=== PATIENT | female | born 1950 | race Caucasian/White ===

== ENCOUNTER 2024-01-27 13:39 | Outpatient (AMB) | payer MEDICARE, SELFPAY ==
--- NOTE | 2024-01-27 13:46 | MHC.PC.OV ---
Vital Signs 01/27/24 13:47 Height 5 ft 8 in Weight 167 lb BMI 25.4 BP 120/76 Blood Pressure Location Rt brachial Position Sitting Pulse 86 Pulse Source Pulse Oximeter Pulse Oximetry (%) 95 Oxygen Delivery Method Room Air Intake Visit Reasons: F/U Med Review Intake Note: Pt is here today for PE. Pt has not been seen since 2020. Allergies codeine Allergy (Unknown, Verified 01/27/24 13:52) Headache Medication List - Last Reconciled 01/27/24 by Mallory Wagner MD coenzyme Q10 (H2Q CoQ10) PO multivitamin 1 tab PO DAILY [pre probiotic PO] Tobacco use date assessed: 01/27/24 Fall risk assessment: No Falls in past year Last assessed Fall Risk: 01/27/24 Dental Screening Dental Screen Date: 01/27/24 Did you have a dental visit in the last 12 months?: Yes Did you have a dental problem in the last 6 months where you did not have access to dental care?: No Was dental information given to patient?: Patient has dentist HPI F/U Med Review HPI Details Pt presents with her neighbor for follow-up of ER visit to [facility] for impaired memory and delusions. Patient's neighbor found out 2 weeks ago that she has not been cleaning and taking care of her apartment and paying bills for a few years. Patient complains of worsening short-term memory worse since she lost her cat in the summer. Patient reports drinking at least a glass of vodka daily and smoking up to 1 pack a day. Patient denies depression suicide ideation change in the sleeping or eating patterns. [facility] Medical History Colonoscopy refused Smoker HTN (hypertension) Hyperlipidemia Depression Surgical History No pertinent past surgical history Family History Father No problems noted. Mother No problems noted. Social History [facility] Patient Tobacco Use Status: Current everyday Tobacco user Cigarettes Per Day: 4 e-Cigarette/Vaping Use: Never Used service: No Current occupational status: retired Cognitive needs: No Hearing needs: No Vision needs: Yes Questionnaire PHQ-9 Over the last 2 weeks, how often have you been bothered by any of the following problems? 1. Little interest or pleasure in doing things: not at all 2. Feeling down, depressed, or hopeless: not at all 3. Trouble falling or staying asleep, or sleeping too much: not at all 4. Feeling tired or having little energy: not at all 5. Poor appetite or overeating: not at all 6. Feeling bad about yourself - or that you are a failure or have let yourself or your family down: not at all 7. Trouble concentrating on things, such as reading the newspaper or watching television: not at all 8. Moving or speaking so slowly that other people could have noticed. Or the opposite - being so fidgety or restless that you have been moving around a lot more than usual: not at all 9. Thoughts that you would be better off or of hurting yourself in some way: not at all Total score: 0 Depression Screening Interpretation: Negative Depression Screening Done: Yes 46438 - PHQ-9 Billing: Yes Source: Developed by Drs. Mihir Yeung, Opal Dawn, Cesar Rebolledo and colleagues, with an educational jose armando from [employer]. Thrive Questionnaire Date Thrive assessed: 01/27/24 I am a: Patient What is your living situation today?: I have a place to live, but I am worried about losing it in the future Within the past 12 months, did the food you bought not last and you didn't have the money to get more?: Never true Within the past 12 months, did you worry whether your food would run out before you got money to buy more?: Never true Do you have trouble paying for medicines?: No Do you have trouble getting transportation to medical appointments?: Yes Do you have trouble paying your heating and electricity bill?: No Do you have trouble taking care of your child, family member or friend?: No Do you have trouble with day-to-day activities such as bathing, preparing meals, shopping, managing finances, etc.?: Yes Are you currently unemployed and looking for a job?: No Are you interested in more education?: No Please select the resources that you would like help with: Housing/Nursing Home, Transportation and Care for elder or disabled Currently or been in a relationship where the following occur: No concerns reported THRIVE Score: 2 AUDIT C Alcohol Use Questionnaire (AUDIT-C) 1. How often do you have a drink containing alcohol?: 4 or more times a week 2. How many drinks containing alcohol do you have on a typical day when you are drinking?: 1 or 2 3. How often do you have six or more drinks on one occasion?: Never Total Score: 4 BELEM-7 AMB Questionnaire BELEM-7 Date BELEM - 7 assessed: 01/27/24 Feeling nervous, anxious, or on edge: 0 = Not at all Not being able to stop or control worryin = Not at all Worrying too much about different things: 0 = Not at all Trouble relaxin = Not at all Being so restless that it is hard to sit still: 0 = Not at all Becoming easily annoyed or irritable: 0 = Not at all Feeling afraid as if something awful might happen: 0 = Not at all Total BELEM-7 score (0-4 normal; 5-9 mild; 10-14 moderate; 15-21 severe): 0 Source: Developed by Drs. Mihir Yeung, Opal Dawn, Cesar Rebolledo and colleagues, with an educational jose armando from [employer]. BELEM-7 Assessment Billing BELEM-7 Assessment Tool: BELEM-7 Assessment 35881 Review of Systems Const All systems reviewed & are unremarkable except as noted in HPI and below Eyes Reports no additional complaints ENT Reports no additional complaints Card Reports no additional complaints Resp Reports no additional complaints GI Reports no additional complaints Reports no additional complaints Physical exam (Primary Care) Vital Signs: Last Vital Signs Pulse 86 01/27/24 13:47 BP 120/76 01/27/24 13:47 Pulse Ox 95 01/27/24 13:47 Oxygen Delivery Method Room Air 01/27/24 13:47 BMI result Body Mass Index 25.4 Tobacco/Smoking Status: Tobacco use Status Tobacco use date assessed 01/27/24 01/27/24 13:56 Patient Tobacco Use Status Current everyday Tobacco 01/27/24 13:56 e-Cigarette/Vaping Use Never Used 01/27/24 13:56 PHQ-9: PHQ-9 Score PHQ-9: Total score 0 01/27/24 13:56 Depression Screening Interpretation: Negative Thrive Assessment: Date of Thrive Assessment Date Thrive assessed 01/27/24 01/27/24 13:58 Currently or been in a relationship where the following occur: No concerns reported Const General: no acute distress Orientation/consciousness: patient oriented x3 HENMT Head: Yes normal to inspection Mouth: Normal oral and palatal mucosa present Neck Neck: Yes no lymphadenopathy and Yes supple Resp Effort & Inspection: normal respiratory effort Auscultation: clear to auscultation bilaterally Cardio Rhythm: regular rhythm Heart sounds: S1 normal heart sound present and S2 normal heart sound present GI Inspection: Yes normal to inspection Palpation (GI): Soft to palpation Percussion: Yes normal to percussion Auscultation: normal bowel sounds Neuro General: patient oriented x3 Cranial nerves: Yes CN's II-XII intact bilaterally Gait exam (Neuro): Normal gait present Motor exam (neuro): 5/5 motor strength present throughout Coding Level of Care Code Est Pt Level 3 (84674) Diagnoses Dementia F03.90 EtOH dependence F10.20 Additional Codes BELEM-7 Assessment Billing - BELEM-7 Assessment Tool: BELEM-7 Assessment 25122 ([id number]) PHQ-9 - 92342 - PHQ-9 Billing: Yes ([id number]) Assessment & Plan Assessment & Plan (1) Dementia: Code(s): F03.90 - Unspecified dementia, unspecified severity, without behavioral disturbance, psychotic disturbance, mood disturbance, and anxiety Category: Medical Plan: Obtain basic blood work including vitamin B12 level and folic acid referred to neurology. Patient is thinking about moving to assisted living facility (2) EtOH dependence: Code(s): F10.20 - Alcohol dependence, uncomplicated Category: Medical Plan: Cutting down on alcohol discussed with the patient, follow-up in 2 months Orders: Orders Complete Blood Count Auto Diff Today F03.90 - Unspecified dementia, unspecified severity, without behavioral disturbance, psychotic disturbance, mood disturbance, and anxiety Comprehensive Met. Panel Today F03.90 - Unspecified dementia, unspecified severity, without behavioral disturbance, psychotic disturbance, mood disturbance, and anxiety TSH reflex Free T4 Today F03.90 - Unspecified dementia, unspecified severity, without behavioral disturbance, psychotic disturbance, mood disturbance, and anxiety Vitamin B12 and Folate Today F03.90 - Unspecified dementia, unspecified severity, without behavioral disturbance, psychotic disturbance, mood disturbance, and anxiety Vitamin B1 Today F03.90 - Unspecified dementia, unspecified severity, without behavioral disturbance, psychotic disturbance, mood disturbance, and anxiety Referrals Neurology Referral F03.90 - Unspecified dementia, unspecified severity, without behavioral disturbance, psychotic disturbance, mood disturbance, and anxiety
[2024-01-27 13:47] VITALS: BP 120/76; PULSE 86; O2SAT 95; BMI 25.4
== END 2024-01-27 14:53 | disposition home or self-care (01) ==
PROVIDERS: PCP Internal Medicine; Visit Provider Internal Medicine
DX: F03.90 Unspecified dementia, unspecified severity, without behavioral disturbance, psychotic disturbance, mood disturbance, and anxiety (principal); F10.20 Alcohol dependence, uncomplicated

== ENCOUNTER → 2024-01-27 13:39 | Outpatient (BNVA) | payer MEDICARE, SELFPAY | PROVIDERS: PCP Internal Medicine; Visit Provider Internal Medicine | DX: F17.210 Nicotine dependence, cigarettes, uncomplicated (principal); F10.20 Alcohol dependence, uncomplicated | CPT/HCPCS: 96127; 99212 ==

== ENCOUNTER 2024-02-24 12:37 | Outpatient (REF) | payer MEDICARE, SELFPAY ==
[2024-02-24 16:05] LABS: MANUAL DIFF FLAG NO
[2024-02-24 16:09] LABS: Basophils Percent Auto 0.4 % (0-2); Eosinophils Absolute Auto 0.1 X10*3/uL (0.0-0.4); Eosinophils Percent Auto 1.8 % (0-4); Hematocrit 41.4 % (37.0-47.0); Hemoglobin 14.4 g/dl (12.0-16.0); Imm Gran Abs Auto 0.02 X10*3/uL (0.00-0.03); Imm Gran Pct Auto 0.3 % (0.0-0.4); Lymphocytes Absolute Auto 2.2 X10*3/uL (1.2-4.9); Lymphocytes Percent Auto 31.4 % (20-40); Mean Corpuscular HGB Conc 34.8 g/dl (31.0-35.0); Mean Corpuscular Hemoglobin 33.6 pg (27.0-33.0); Mean Corpuscular Volume 96.7 fL (80.0-98.0); Mean Platelet Volume 9.9 fL (9.4-12.3); Monocytes Absolute Auto 0.4 X10*3/uL (0.1-1.2); Monocytes Percent Auto 5.5 % (2-11); Neutrophils Absolute Auto 4.3 x10*3/uL (2.0-8.3); Neutrophils Percent Auto 60.6 % (45-73); Platelet Count 191 X10*3/uL (160-400); Red Blood Count 4.28 X10*6/uL (4.20-5.50); Red Cell Distribution Width 11.5 % (11.0-16.0)
[2024-02-24 17:09] LABS: Alanine Aminotransferase 25 U/L (0-31); Albumin Level 4.2 g/dL (3.5-5.0); Alkaline Phosphatase 80 U/L (39-117); Anion Gap 10 (12-20); Aspartate Amino Transferase 25 U/L (5-31); Bilirubin Total 0.8 mg/dL (0.0-1.0); Blood Urea Nitrogen 12 mg/dL (9-16); Calcium 9.3 mg/dL (8.4-10.2); Carbon Dioxide 26 mmol/L (22-29); Chloride 112 mmol/L (96-108); Estimated Glomerular Filt Rate > 60; Glucose Random 107 mg/dL (60-115); Potassium 4.7 mmol/L (3.3-5.1); Sodium 143 mmol/L (135-145); TSH reflex Free T4 1.75 uIU/mL (0.32-4.0); Total Protein 6.8 g/dL (6.5-8.0)
[2024-02-24 17:21] LABS: Folate 15.4 ng/mL (> or = 4.0); Vitamin B12 400 pg/mL (200-900)
[2024-03-01 15:58] LABS: Vitamin B1 <6 nmol/L (8-30)
== END 2024-02-24 12:38 | disposition home or self-care (01) ==
LOC: HO.HMGCLDS 12:37
PROVIDERS: PCP Internal Medicine; Visit Provider Internal Medicine
DX: F03.90 Unspecified dementia, unspecified severity, without behavioral disturbance, psychotic disturbance, mood disturbance, and anxiety (principal)
CPT/HCPCS: 36415; 80053; 82607; 82746; 84425; 84443; 85025

== ENCOUNTER 2024-03-08 12:43 | Outpatient (AMB) | payer MEDICARE, SELFPAY ==
--- NOTE | 2024-03-08 12:43 | MHC.PC.OV ---
Vital Signs 03/08/24 12:44 Height 5 ft 8 in Weight 162 lb BMI 24.6 BP 124/74 Blood Pressure Location Lt brachial Position Sitting Respiration 16 Pulse 94 Pulse Source Pulse Oximeter Temp 98.2 F Temp Source Oral Pulse Oximetry (%) 96 Oxygen Delivery Method Room Air Intake Visit Reasons: 6 weeks f/up Intake Note: Pt is here today for 6 weeks follow up visit. Allergies codeine Allergy (Unknown, Verified 03/08/24 12:52) Headache Medication List - Last Reconciled 03/08/24 by Mallory Wagner MD coenzyme Q10 (H2Q CoQ10) PO multivitamin 1 tab PO DAILY [pre probiotic PO] thiamine HCl (vitamin B1) 100 mg PO DAILY Tobacco use date assessed: 03/08/24 Fall risk assessment: No Falls in past year Last assessed Fall Risk: 03/08/24 Dental Screening Dental Screen Date: 03/08/24 Did you have a dental visit in the last 12 months?: Yes Did you have a dental problem in the last 6 months where you did not have access to dental care?: No Was dental information given to patient?: Patient has dentist HPI 6 weeks f/up HPI Details Patient presents for the follow-up blood work. Patient has not start taking thiamine supplement yet. She continues to smoke a half a pack a day and drinks every day to vodka shots. She has been trying to eat well-balanced diet and has been to court with her neighbor to discuss guardianship. Patient is waiting for an appointment with neurologist to evaluate for dementia. [facility] Medical History (Updated 03/08/24 @ 13:53 by Mallory Wagner MD) Colonoscopy refused Smoker Hyperlipidemia Depression Surgical History No pertinent past surgical history Family History Father No problems noted. Mother No problems noted. Social History Housing: Condominium Patient Tobacco Use Status: Current everyday Tobacco user Cigarettes Per Day: 4 e-Cigarette/Vaping Use: Never Used service: No Current occupational status: retired Cognitive needs: No Hearing needs: No Vision needs: Yes Questionnaire PHQ-9 Over the last 2 weeks, how often have you been bothered by any of the following problems? 1. Little interest or pleasure in doing things: not at all 2. Feeling down, depressed, or hopeless: not at all 3. Trouble falling or staying asleep, or sleeping too much: not at all 4. Feeling tired or having little energy: not at all 5. Poor appetite or overeating: not at all 6. Feeling bad about yourself - or that you are a failure or have let yourself or your family down: not at all 7. Trouble concentrating on things, such as reading the newspaper or watching television: not at all 8. Moving or speaking so slowly that other people could have noticed. Or the opposite - being so fidgety or restless that you have been moving around a lot more than usual: not at all 9. Thoughts that you would be better off or of hurting yourself in some way: not at all Total score: 0 Depression Screening Interpretation: Negative Depression Screening Done: Yes 98567 - PHQ-9 Billing: Yes Source: Developed by Drs. Mihir Yeung, Opal Dawn, Cesar Rebolledo and colleagues, with an educational jose armando from [employer]. Thrive Questionnaire Date Thrive assessed: 01/27/24 AUDIT C Alcohol Use Questionnaire (AUDIT-C) 1. How often do you have a drink containing alcohol?: 2-3 times a week 2. How many drinks containing alcohol do you have on a typical day when you are drinking?: 1 or 2 3. How often do you have six or more drinks on one occasion?: Never Total Score: 3 BELEM-7 AMB Questionnaire BELEM-7 Date BELEM - 7 assessed: 03/08/24 Feeling nervous, anxious, or on edge: 0 = Not at all Not being able to stop or control worryin = Not at all Worrying too much about different things: 0 = Not at all Trouble relaxin = Not at all Being so restless that it is hard to sit still: 0 = Not at all Becoming easily annoyed or irritable: 0 = Not at all Feeling afraid as if something awful might happen: 0 = Not at all Total BELEM-7 score (0-4 normal; 5-9 mild; 10-14 moderate; 15-21 severe): 0 Source: Developed by Drs. Mihir Yeung, Opal Dawn, Cesar Rebolledo and colleagues, with an educational jose armando from [employer]. BELEM-7 Assessment Billing BELEM-7 Assessment Tool: BELEM-7 Assessment 16408 Review of Systems Const All systems reviewed & are unremarkable except as noted in HPI and below Eyes Reports no additional complaints ENT Reports no additional complaints Card Reports no additional complaints Resp Reports no additional complaints GI Reports no additional complaints Reports no additional complaints Physical exam (Primary Care) Vital Signs: Last Vital Signs Temp 98.2 F 03/08/24 12:44 Pulse 94 03/08/24 12:44 Resp 16 03/08/24 12:44 BP 124/74 03/08/24 12:44 Pulse Ox 96 03/08/24 12:44 Oxygen Delivery Method Room Air 03/08/24 12:44 BMI result Body Mass Index 24.6 Tobacco/Smoking Status: Tobacco use Status Tobacco use date assessed 03/08/24 03/08/24 12:55 Patient Tobacco Use Status Current everyday Tobacco 03/08/24 12:45 e-Cigarette/Vaping Use Never Used 03/08/24 12:45 PHQ-9: PHQ-9 Score PHQ-9: Total score 0 03/08/24 12:58 Depression Screening Interpretation: Negative Thrive Assessment: Date of Thrive Assessment Date Thrive assessed 01/27/24 03/08/24 12:45 Const General: no acute distress HENMT Head: Yes normal to inspection Neck Neck: Yes supple Resp Effort & Inspection: normal respiratory effort Auscultation: clear to auscultation bilaterally Cardio Rhythm: regular rhythm Heart sounds: S1 normal heart sound present and S2 normal heart sound present GI Inspection: Yes normal to inspection Palpation (GI): Soft to palpation Percussion: Yes normal to percussion Auscultation: normal bowel sounds Neuro Cranial nerves: Yes CN's II-XII intact bilaterally Motor exam (neuro): 5/5 motor strength present throughout Romberg Test: Negative Coding Level of Care Code Est Pt Level 4 (01903) Diagnoses Dementia F03.90 Smoker F17.200 Hyperlipidemia E78.5 Thiamine deficiency E51.9 Vitamin D deficiency E55.9 Additional Codes BELEM-7 Assessment Billing - BELEM-7 Assessment Tool: BELEM-7 Assessment 22962 ([id number]) PHQ-9 - 51612 - PHQ-9 Billing: Yes ([id number]) Assessment & Plan Assessment & Plan (1) Dementia: Comment: Referred to neurology, obtain CT of the brain Code(s): F03.90 - Unspecified dementia, unspecified severity, without behavioral disturbance, psychotic disturbance, mood disturbance, and anxiety Category: Medical Plan: Check brain CT start thiamine 100 MG DAILY CHECK THE LEVEL IN 1 MONTH, patient has an appointment with neurologist in July but will try to get an sooner appointment at [facility] (2) Smoker: Comment: / PPD, needs screen lung CT, [place] [facility] Code(s): F17.200 - Nicotine dependence, unspecified, uncomplicated Category: Social Hx Plan: Tobacco quitting discussed with the patient referred to lung cancer screening program (3) Hyperlipidemia: Code(s): E78.5 - Hyperlipidemia, unspecified Category: Medical Plan: Return for fasting blood work in 1 month, continue low-cholesterol diet (4) Thiamine deficiency: Code(s): E51.9 - Thiamine deficiency, unspecified Category: Medical Plan: Start thiamine replacement (5) Vitamin D deficiency: Code(s): E55.9 - Vitamin D deficiency, unspecified Category: Medical Plan: Continue vitamin-D supplement Orders: Orders Lipid Panel 1 Month E51.9 - Thiamine deficiency, unspecified, E55.9 - Vitamin D deficiency, unspecified, E78.5 - Hyperlipidemia, unspecified Vitamin D 25-OH Total 1 Month E51.9 - Thiamine deficiency, unspecified, E55.9 - Vitamin D deficiency, unspecified, E78.5 - Hyperlipidemia, unspecified CT head/brain wo IV con Today F03.90 - Unspecified dementia, unspecified severity, without behavioral disturbance, psychotic disturbance, mood disturbance, and anxiety Vitamin B1 1 Month E51.9 - Thiamine deficiency, unspecified, E55.9 - Vitamin D deficiency, unspecified, E78.5 - Hyperlipidemia, unspecified Referrals Thoracic/General Surgery Referral F17.200 - Nicotine dependence, unspecified, uncomplicated Medications: Refilled thiamine HCl (vitamin B1) 100 mg PO DAILY 90 tabs 1RF
[2024-03-08 12:44] VITALS: BP 124/74; PULSE 94; RESP 16; TEMP 36.8; O2SAT 96; BMI 24.6
== END 2024-03-08 13:57 | disposition home or self-care (01) ==
PROVIDERS: PCP Internal Medicine; Visit Provider Internal Medicine
DX: F03.90 Unspecified dementia, unspecified severity, without behavioral disturbance, psychotic disturbance, mood disturbance, and anxiety (principal); F17.200 Nicotine dependence, unspecified, uncomplicated; E78.5 Hyperlipidemia, unspecified; E51.9 Thiamine deficiency, unspecified; E55.9 Vitamin D deficiency, unspecified

== ENCOUNTER → 2024-03-08 12:43 | Outpatient (BNVA) | payer MEDICARE, SELFPAY | PROVIDERS: PCP Internal Medicine; Visit Provider Internal Medicine | DX: F03.90 Unspecified dementia, unspecified severity, without behavioral disturbance, psychotic disturbance, mood disturbance, and anxiety (principal); E78.5 Hyperlipidemia, unspecified; E51.9 Thiamine deficiency, unspecified; E55.9 Vitamin D deficiency, unspecified; F17.200 Nicotine dependence, unspecified, uncomplicated; Z71.6 Tobacco abuse counseling | CPT/HCPCS: 96127; 99212 ==

== ENCOUNTER 2024-05-25 10:19 | Outpatient (AMB) | payer MEDICARE, SELFPAY ==
--- NOTE | 2024-05-25 08:10 | A.OFFVIS_ITS ---
Intake Visit Reasons: Current Smoker Allergies codeine Allergy (Unknown, Verified 03/08/24 12:52) Headache HPI HPI Current Smoker: Details: Initial visit for this 73yo smoker with a 25PYH. Patient started smoking at age 16 for 57 years at 1/2ppd. Currently down to 1/4ppd . Denies marijuana use. Denies second hand smoke exposure. Denies exposure to chemicals or substances like asbestos. . Denies known family history of lung cancer. Denies personal history of cancers. Denies chest CT in last year. . Denies recent travel outside the [place]. Denies recent respiratory illness or recent hospitalization for respiratory issues. Denies testing positive for COVID. Admits receiving COVID Vaccine x 2. . Denies fever, chills, new/worsening cough, hemoptysis, hoarseness or dysphagia. Denies significant chest pain, significant dyspnea or unintentional weight loss. Patient Lung Cancer Screening Questionnaire reviewed with patient by provider. . Shared Decision Making Completed. Patient meets criteria. Discussed in detail with patient, the risk vs benefit of LDCT screening. Patient consents to proceed with scan. Discussed smoking cessation. [facility] Medical History (Updated 05/25/24 @ 10:26 by Stella Rodney PA-C) Nicotine dependence, cigarettes, uncomplicated Colonoscopy refused Hyperlipidemia Depression Surgical History No pertinent past surgical history Family History Father No problems noted. Mother No problems noted. Social History (Updated 05/25/24 @ 10:26 by Stella Rodney PA-C) Housing: Condominium Patient Tobacco Use Status: Current everyday Tobacco user Cigarettes Per Day: 4 Years Smoked: (onset 16yo, 1/2ppd x 57yrs, now 1/4ppd, 25pyh) e-Cigarette/Vaping Use: Never Used service: No Current occupational status: retired Cognitive needs: No Hearing needs: No Vision needs: Yes Assessment & Plan Assessment & Plan (1) Nicotine dependence, cigarettes, uncomplicated: Comment: (onset 16yo, 1/2ppd x 57yrs, now 1/4ppd, 25pyh) Code(s): F17.210 - Nicotine dependence, cigarettes, uncomplicated Category: Medical Plan: - SDM visit completed today in office. - Patient meets criteria for LDCT for lung cancer screening purposes and is asymptomatic. - Smoking cessation counseling offered. Patients can always call [phone]. - Will arrange for a LDCT scan of the chest for screening purposes at [facility]. - Risks, benefits, and alternatives were discussed in detail and the patient agrees to proceed. - Risks discussed include but are not limited to: radiation exposure, anxiety during testing and while awaiting results, false negatives, false positives and possibility of additional intervention such as further imaging or surgical procedures for benign disease. - Benefits are obviously detection of lung cancer at an early stage which can lead to improved outcomes. - Discussed the importance of screening program compliance with adherence to yearly LDCT scan as scheduled - or sooner interval scans for personalized screening regimen. - Discussed follow up plan. Our office will send a letter discussing results and if needed set up phone call and office visit based on CT findings. - Patient educated on results categorization and the management decisions for suspicious findings potentially found on the screening LDCT scan. Any patient with a Lung RADS score of 3 or 4 will be reviewed by a multidisciplinary team at [facility] to form a plan of action in regards to scan findings. - If further work up is warranted for a suspicious lung finding this will be followed by the Lung Cancer Screening program in conjunction with the Thoracic Surgery Department at [facility]. - A copy of the office note and LDCT will be sent to the patient's PCP - as well as documentation on any associated further plans of care. - Incidental findings on LDCT are the PCP's responsibility. These findings are indicated with an S finding on the LDCT Assessment. A note discussing the findings will be sent to the PCP who is then responsible for further management. - All questions answered.? Coding Level of Care Code Lung Cancer Screening G0296 Diagnoses Nicotine dependence, cigarettes, uncomplicated F17.210
--- OUTSIDE RECORDS SUMMARY | 2024-05-25 11:13 | XMS_ITS | Clinical Summary ---
Author Organization [facility] Address [address] [place] [address] Phone Care Team Providers Care Triage Registered Nurse Name Role Phone Mallory Wagner MD Primary Care Provider [phone] Allergies No known active allergies Encounters Date Type Department Care Team Description 05/16/2024 9:55 AM EDT - 05/16/2024 2:40 PM EDT Emergency [facility] Emergency [address] [place] [address] Dizziness (Primary Dx) Discharge Disposition: Home or Self Care from Last 3 Months Social History Tobacco Use Types Packs/Day Years Used Date Smoking Tobacco: Never Assessed Comments Unknown Sex and Gender Information Value Date Recorded Sex Assigned at Female 05/16/2024 11:22 AM EDT Legal Sex Female 9:52 AM EDT Gender Identity Female 05/16/2024 11:22 AM EDT Sexual Orientation Straight 05/16/2024 11 :22 AM EDT Last Filed Vital Signs Vital Sign Reading Time Taken Comments Blood Pressure 119/73 05/16/2024 1:06 PM EDT Pulse 70 05/16/2024 1:06 PM EDT Temperature 37 ??C (98.6 ??F) 05/16/2024 10:14 AM EDT Respiratory Rate 18 05/16/2024 1:06 PM EDT Oxygen Saturation 97% 05/16/2024 1:06 PM EDT Inhaled Oxygen Concentration - - Weight 77.1 kg (170 lb) 05/16/2024 10:14 AM EDT Height 170.2 cm (5' 7 ) 05/16/2024 10:14 AM EDT Body Mass Index 26.63 05/16/2024 10:14 AM EDT Plan of Treatment Health Maintenance Due Date Last Done Comments Breast Cancer Screening 1950 DTaP,Tdap,and Td Vaccines (1 - Tdap) 1969 Zoster Vaccines (1 of 2) 2000 Pneumococcal Vaccine: 50+ Years (2 of 2 - PPSV23) 02/09/2019 02/09/2018 COVID-19 Vaccine (3 - 2023-2 5 season) 2023 01/02/2021, 05/19/2020 Colorectal Cancer Screening: Colonoscopy 05/16/2024 Depression Screening 05/16/2024 Falls Risk Assessment 05/16/2024 Hepatitis C Screening 05/16/2024 Medicare Annual Wellness Visit 05/16/2024 Osteoporosis Screening (Bone Density Screening) 05/16/2024 Social Influencers of Health Screening 05/16/2024 Influenza Vaccine (Season Ended) 2024 11/25/2018, 02/09/2018, 02/12/2017 RSV Immunization Adult Patients (1 - 1-dose 75+ series) 2025 HIB Vaccines Aged Out No longer eligi ble based on patient's age to complete this topic HPV Vaccines Aged Out No longer eligi ble based on patient's age to complete this topic Hepatitis A Vaccines Aged Out No long er eligible based on patient's age to complete this topic Hepatitis B Vaccines Aged Out No long er eligible based on patient's age to complete this topic IPV Vaccines Aged Out No longer eligi ble based on patient's age to complete this topic MMR Vaccines Aged Out No longer eligi ble based on patient's age to complete this topic Meningococcal ACWY Vaccine Aged Out N o longer eligible based on patient's age to complete this topic Meningococcal B Vaccine Aged Out No l onger eligible based on patient's age to complete this topic RSV Immunization Patients Under 20 months Aged Out No longer eligible b ased on patient's age to complete this topic Varicella Vaccines Aged Out No longer eligible based on patient's age to complete this topic Procedures Procedure Name Priority Date/Time Associated Diagnosis Comments ECG ANNOTATED 05/17/2024 TROPONIN I HIGH SENSITIVITY STAT 05/16/2024 12:29 PM EDT XR CHEST 2 VIEWS STAT 05/16/2024 12:[address] HEAD WO CONTRAST STAT 05/16/2024 1 2:00 PM EDT VERMA URINE CULTURE TUBE STAT 05/16/2024 11:38 AM EDT URINALYSIS WITH REFLEX MICROSCOPIC AND CULTURE STAT 05/16/2024 11:38 AM EDT URINALYSIS WITH REFLEX MICROSCOPIC AND CULTURE STAT 05/16/2024 11:38 AM EDT CBC WITH AUTO DIFFERENTIAL STAT 05/16/2024 11:15 AM EDT TROPONIN I HIGH SENSITIVITY STAT 05/16/2024 11:15 AM EDT MAGNESIUM STAT 05/16/2024 11:15 AM EDT BASIC METABOLIC PANEL STAT 05/16/2024 11:15 AM EDT CBC AND DIFFERENTIAL STAT 05/16/2024 11:15 AM EDT POCT GLUCOSE BLOOD Routine 05/16/2024 11 :13 AM EDT ECG 12-LEAD STAT 05/16/2024 11:06 AM EDT from Last 3 Months Results * ECG-Annotated (05/17/2024) us Provider Onbase MD ECG ORDERABLES Final Result * Troponin I high sensitivity (05/16/2024 12:29 PM EDT) Only the most recent of2 resultswithin the time period is included. High Sensitivity Troponin I 5 <=54 ng/L LAB CHEMISTRY METHOD 05/16/2024 1:46 PM EDT [facility] Blood Venous blood specimen / Unknown Venipuncture / Unknown 05/16/2024 12:29 PM EDT 05/16/2024 1:13 PM EDT Narrative [facility] [place] ([facility]) [facility] - 05/16/2024 1:46 PM EDT High levels of biotin in samples may falsely decrease hsTroponin values. ??Use caution when interpreting hsTroponin results in patients taking biotin who exhibit renal impairment (eGFR <60) or in patients taking more than 20 mg/day of biotin. us Galdino Dang MD LAB BLOOD ORDERABLES Final Resu lt [facility] [address] [place] [address], * XR Chest 2 Views (05/16/2024 12:06 PM EDT) Anatomical Region Laterality Modality Body Radiographic Janice ging 05/16/2024 12:2 8 PM EDT Impressions 05/16/2024 12:28 PM EDT FINDINGS/IMPRESSION: Lungs are clear. ??No pleural effusion or pneumothorax. ??Cardiac silhouette is normal in size. ??Degenerative changes seen throughout the bones. -------- FINAL REPORT -------- Dictated By: TAYLOR LANTIGUA Dictated Date: 05/16/2024 12:28 ET Assigned Physician: TAYLOR LANTIGUA Reviewed and Electronically Signed By: TAYLOR LANTIGUA Signed Date: 05/16/2024 12:28 ET Workstation ID: [id number] Transcribed By: Self Edit Transcribed Date: 05/16/2024 12:28 ET Narrative 05/16/2024 12:28 PM EDT XR CHEST 2 VIEWS INDICATION: ??Pain TECHNIQUE: XR CHEST 2 VIEWS COMPARISON: No priors available. Procedure Note Taylor Lantigua MD - 05/16/2024 XR CHEST 2 VIEWS INDICATION: Pain TECHNIQUE: XR CHEST 2 VIEWS COMPARISON: No priors available. IMPRESSION: FINDINGS/IMPRESSION: Lungs are clear. No pleural effusion orpneumothorax. Cardiac silhouette is normal in size. Degenerative changesseen throughout the bones. -------- FINAL REPORT -------- Dictated By: TAYLOR LANTIGUA Dictated Date: 05/16/2024 12:28 ET Assigned Physician: TAYLOR LANTIGUA Reviewed and Electronically Signed By: TAYLOR LANTIGUA Signed Date: 05/16/2024 12:28 ET Workstation ID: [id number] Transcribed By: Self Edit Transcribed Date: 05/16/2024 12:28 ET Miguel [facility] XR PROCEDURES Final Resul t * CT Head wo Contrast (05/16/2024 12:00 PM EDT) Anatomical Region Laterality Modality Head and Neck Computed Tomogra phy 05/16/2024 12:0 6 PM EDT Impressions 05/16/2024 12:18 PM EDT No acute intracranial abnormality -------- FINAL REPORT -------- Dictated By: TAYLOR LANTIGUA Dictated Date: 05/16/2024 12:06 ET Assigned Physician: TAYLOR LANTIGUA Reviewed and Electronically Signed By: TAYLOR LANTIGUA Signed Date: 05/16/2024 12:18 ET Workstation ID: [id number] Transcribed By: Self Edit Transcribed Date: 05/16/2024 12:06 ET Narrative 05/16/2024 12:18 PM EDT PROCEDURE: HEAD CT INDICATION: Venous TECHNIQUE: CT of the head without intravenous contrast. Multiplanar reformats. The examination was performed utilizing dose reduction techniques. Total DLP 809 COMPARISON: ??No priors available. FINDINGS: ?? No acute territorial infarct, mass effect, or intracranial hemorrhage. Mild scattered periventricular and subcortical white matter hypodensities are most likely related to chronic small vessel ischemic change. Mild diffuse cerebral and cerebellar volume loss with prominence of ventricles, sulci, and cisterns. ??No hydrocephalus. Scattered mucosal thickening seen throughout the sinuses. ??Mastoid air cells are clear. No scalp hematoma or skull fracture. Procedure Note Taylor Lantigua MD - 05/16/2024 PROCEDURE: HEAD CT INDICATION: Venous TECHNIQUE: CT of the head without intravenous contrast. Multiplanarreformats. The examination was performed utilizing dose reductiontechniques. Total DLP 809 COMPARISON: No priors available. FINDINGS: No acute territorial infarct, mass effect, or intracranial hemorrhage. Mild scattered periventricular and subcortical white matter hypodensitiesare most likely related to chronic small vessel ischemic change. Mild diffuse cerebral and cerebellar volume loss with prominence ofventricles, sulci, and cisterns. No hydrocephalus. Scattered mucosal thickening seen throughout the sinuses. Mastoid aircells are clear. No scalp hematoma or skull fracture. IMPRESSION: No acute intracranial abnormality -------- FINAL REPORT -------- Dictated By: TAYLOR LANTIGUA Dictated Date: 05/16/2024 12:06 ET Assigned Physician: TAYLOR LANTIGUA Reviewed and Electronically Signed By: TAYLOR LANTIGUA Signed Date: 05/16/2024 12:18 ET Workstation ID: [id number] Transcribed By: Self Edit Transcribed Date: 05/16/2024 12:06 ET Miguel [facility] IM CT PROCEDURES Final Resul t * Urinalysis with reflex microscopic and culture (05/16/2024 11:38 AM EDT) Specific [place] Urine 1.018 1.003 - 1.030 LAB URINALYSIS - AUTOMATED METHOD 05/16/2024 12:08 PM [facility] pH, Urine 6.5 5.0 - 8.0 pH LAB URINALYSIS - AUTOMATED METHOD 05/16/2024 12:08 PM [facility] Leukocytes, Urine Negative Negative LAB URINALYSIS - AUTOMATED METHOD 05/16/2024 12:08 PM [facility] Nitrite, Urine Negative Negative LAB URINALYSIS - AUTOMATED METHOD 05/16/2024 12:08 PM [facility] Protein, Urine Negative <=Trace mg/dL LAB URINALYSIS - AUTOMATED METHOD 05/16/2024 12:08 PM [facility] Glucose, Urine Negative Negative mg/dL LAB URINALYSIS - AUTOMATED METHOD 05/16/2024 12:08 PM EDT [facility] Ketones, Urine Negative Negative mg/dL LAB URINALYSIS - AUTOMATED METHOD 05/16/2024 12:08 PM EDT [facility] Urobilinogen, Urine 0.2 0.2 - 1.0 mg/dL LAB URINALYSIS - AUTOMATED METHOD 05/16/2024 12:08 PM EDT [facility] Bilirubin, Urine Negative Negative LAB URINALYSIS - AUTOMATED METHOD 05/16/2024 12:08 PM EDT [facility] Blood, Urine Negative Negative LAB URINALYSIS - AUTOMATED METHOD 05/16/2024 12:08 PM EDT [facility] Urine Urine specimen obtained by clean catch procedure / Unknown Non-blood Collection / Unknown 05/16/2024 11:38 AM EDT 05/16/2024 11:50 AM EDT [facility] LAB URINE ORDERABLES Final Re sult Performing Organization Address [facility]/ZIP Co de Phone Number [facility] [address] [place] [address], [place] [phone] * Verma urine culture tube (05/16/2024 11:38 AM EDT) Extra Tube Hold for add-ons. 05/16/2024 1:01 PM EDT [facility] Comment:Auto resulted. Urine Urine specimen obtained by clean catch procedure / Unknown Non-blood Collection / Unknown 05/16/2024 11:38 AM EDT 05/16/2024 11:50 AM EDT us Miguel [facility] LAB URINE ORDERABLES Final Re sult Performing Organization Address City/[facility]/ZIP Co de Phone Number [facility] [address] [place] [address], [place] [phone] * (ABNORMAL) CBC auto differential (05/16/2024 11:15 AM EDT) [facility] WBC 10.6 4.8 - 10.8 K/mcL LAB HEMETOLOGY METHOD 05/16/2024 11:58 AM [facility] RBC 4.30 3.80 - 4.80 M/mcL LAB HEMETOLOGY METHOD 05/16/2024 11:58 AM [facility] Hemoglobin 13.9 11.5 - 16.0 g/dL LAB HEMETOLOGY METHOD 05/16/2024 11:58 AM [facility] Hematocrit 41.5 35.0 - 47.0 % LAB HEMETOLOGY METHOD 05/16/2024 11:58 AM [facility] MCV 96.5 79.0 - 98.0 FL LAB HEMETOLOGY METHOD 05/16/2024 11:58 AM [facility] MCH 32.3(H) 27.0 - 32.0 pcg LAB HEMETOLOGY METHOD 05/16/2024 11:58 AM [facility] MCHC 33.5 32.0 - 37.0 g/dL LAB HEMETOLOGY METHOD 05/16/2024 11:58 AM [facility] RDW 11.8 11.0 - 15.0 % LAB HEMETOLOGY METHOD 05/16/2024 11:58 AM [facility] Platelets 206 130 - 400 K/mcL LAB HEMETOLOGY METHOD 05/16/2024 11:58 AM [facility] MPV 9.8 7.0 - 11.0 FL LAB HEMETOLOGY METHOD 05/16/2024 11:58 AM [facility] NRBC 0.0 <1.0 % LAB HEMETOLOGY METHOD 05/16/2024 11:58 AM [facility] NRBC Absolute 0.00 <0.10 K/mcL LAB HEMETOLOGY METHOD 05/16/2024 11:58 AM [facility] Neutrophils Relative 77.6 % LAB HEMETOLOGY METHOD 05/16/2024 11:58 AM [facility] Lymphocytes Relative 15.0 % LAB HEMETOLOGY METHOD 05/16/2024 11:58 AM [facility] Monocytes Relative 4.9 % LAB HEMETOLOGY METHOD 05/16/2024 11:58 AM [facility] Eosinophils Relative 1.6 % LAB HEMETOLOGY METHOD 05/16/2024 11:58 AM [facility] Basophils Relative 0.4 % LAB HEMETOLOGY METHOD 05/16/2024 11:58 AM [facility] Immature Granulocytes Relative 0.5 % LAB HEMETOLOGY METHOD 05/16/2024 11:58 AM [facility] Neutrophils Absolute 8.23(H) 1.50 - 7.00 K/mcL LAB HEMETOLOGY METHOD 05/16/2024 11:58 AM [facility] Lymphocytes Absolute 1.59 1.00 - 5.00 K/mcL LAB HEMETOLOGY METHOD 05/16/2024 11:58 AM [facility] Monocytes Absolute 0.52 0.20 - 1.00 K/mcL LAB HEMETOLOGY METHOD 05/16/2024 11:58 AM [facility] Eosinophils Absolute 0.17 0.00 - 0.50 K/mcL LAB HEMETOLOGY METHOD 05/16/2024 11:58 AM [facility] Basophils Absolute 0.04 0.00 - 0.20 K/mcL LAB HEMETOLOGY METHOD 05/16/2024 11:58 AM [facility] Immature Granulocytes Absolute 0.05(H) 0.00 - 0.03 K/mcL LAB HEMETOLOGY METHOD 05/16/2024 11:58 AM [facility] Blood Venous blood specimen / Unknown Venipuncture / Unknown 05/16/2024 11:15 AM EDT 05/16/2024 11:46 AM EDT us Galdino Dang MD LAB BLOOD ORDERABLES Final Resu lt Performing Organization Address [facility]/ZIP Co de Phone Number [facility] [address] [place] [address], [place] [phone] * Magnesium (05/16/2024 11:15 AM EDT) Magnesium 2.2 1.9 - 2.6 mg/dL LAB CHEMISTRY METHOD 05/16/2024 12:25 PM EDT [facility] Blood Venous blood specimen / Unknown Venipuncture / Unknown 05/16/2024 11:15 AM EDT 05/16/2024 11:46 AM EDT us Galdino Dang MD LAB BLOOD ORDERABLES Final Resu lt Performing Organization Address [facility]/ZIP Co de Phone Number [facility] [address] [place] [address], [place] [phone] * (ABNORMAL) Basic metabolic panel (05/16/2024 11:15 AM EDT) Sodium 138 133 - 145 mmol/L LAB CHEMISTRY METHOD 05/16/2024 12:25 PM EDT [facility] Potassium 4.4 3.5 - 5.5 mmol/L LAB CHEMISTRY METHOD 05/16/2024 12:25 PM EDT [facility] Chloride 105 96 - 110 mmol/L LAB CHEMISTRY METHOD 05/16/2024 12:25 PM EDT [facility] CO2 27 21 - 32 mmol/L LAB CHEMISTRY METHOD 05/16/2024 12:25 PM EDT [facility] Anion Gap 6 3 - 11 LAB CHEMISTRY METHOD 05/16/2024 12:25 PM EDT [facility] Glucose 111(H) 70 - 100 mg/dL LAB CHEMISTRY METHOD 05/16/2024 12:25 PM EDT [facility] BUN 23 5 - 25 mg/dL LAB CHEMISTRY METHOD 05/16/2024 12:25 PM EDT [facility] Creatinine 0.68 0.50 - 1.10 mg/dL LAB CHEMISTRY METHOD 05/16/2024 12:25 PM EDT [facility] eGFR 92 >=60 mL/min/1. 73m2 LAB CHEMISTRY METHOD 05/16/2024 12:25 PM EDT [facility] Comment:Calculation based on the??Chronic Kidney Disease Epidemiology Collaboration (CKD-EPI) equation refit??without adjustment for race. BUN/Creatinine Ratio 33.8 LAB CHEMISTRY METHOD 05/16/2024 12:25 PM EDT [facility] Calcium 9.5 8.5 - 10.5 mg/dL LAB CHEMISTRY METHOD 05/16/2024 12:25 PM EDT [facility] Blood Venous blood specimen / Unknown Venipuncture / Unknown 05/16/2024 11:15 AM EDT 05/16/2024 11:46 AM EDT us Galdino Dang MD LAB BLOOD ORDERABLES Final Resu lt [facility] [address] [place] [address], * (ABNORMAL) POCT Glucose, blood (05/16/2024 11:13 AM EDT) Glucose POCT 105(H) 70 - 100 mg/dL 05/16/2024 11:14 AM EDT [facility] Blood Capillary blood specimen / Unknown 05/16/2024 11:13 AM EDT 05/16/2024 11:15 AM EDT us Generic Provider Poct LAB POINT OF CARE TEST DOCKED DEVICE UNSOLICITED RESULTS Final Result [facility] [place] ([facility] [address] [place] [address], * ECG 12 lead (05/16/2024 11:06 AM EDT) Ventricular Rate ECG 70 BPM GEMUSE Atrial Rate 70 BPM GEMUSE P-R Interval 156 ms GEMUSE QRS Duration 74 ms GEMUSE Q-T Interval 388 ms GEMUSE QTc 419 ms GEMUSE P Wave [place] 48 degrees GEMUSE R [place] -6 degrees GEMUSE T [place] 17 degrees GEMUSE ECG Interpretation Normal sinus rhythm Normal ECG No previous ECGs available Confirmed by MD [id number] on 05/18/2024 1:00:53 AM GEMUSE 05/16/2024 11:0 6 AM EDT 05/18/2024 1:00 AM EDT Galdino Dang MD ECG ORDERABLES Final Result GEMUSE from Last 3 Months Insurance [phone] [place] [id number] [employer] Care Teams Triage Registered Nurse Relationship Specialty Start Date End Date Mallory Wagner MD [address] [place] [id number] PCP - General Internal Medicine 05/16/24
== END 2024-05-25 10:35 | disposition home or self-care (01) ==
LOC: HO.HPS 10:20
PROVIDERS: PCP Internal Medicine; Referring Provider Internal Medicine; Visit Provider Physician Assistant Medical
DX: F17.210 Nicotine dependence, cigarettes, uncomplicated (principal)
CPT/HCPCS: G0296

== ENCOUNTER 2024-05-25 10:38 | Outpatient (REF) | payer MEDICARE, SELFPAY ==
--- NOTE | ~2024-05-25 | CT_ITS ---
CLINICAL HISTORY: F17.210 - Nicotine dependence, cigarettes, uncomplicated CT lung cancer screening (LDCT) Comparison: None Technique: Axial CT images of the chest using low-dose technique. Referring provider counseled the patient on shared decision-making for LDCT screening. Additional counseling was provided on smoking cessation. Effective radiation dose total: DLP 39.5 mGycm, CTDIvol 1.2 mGy. Findings: Lung: The trachea and central bronchi are patent. No dense consolidation, pleural effusion or pneumothorax. Apical predominant centrilobular emphysema. 2 mm subpleural medial right upper lobe pulmonary nodule image 32 series 4. Coronary artery calcifications: Mild Nonaneurysmal aorta. No adenopathy or pericardial effusion. No chest wall lesions or thyroid nodules appreciated. Limited upper abdomen: Unremarkable Other: No acute osseous findings. Impression: Centrilobular emphysema with subcentimeter benign-appearing pulmonary nodules. Lung rads category 2 Category 1: Normal; continue annual screening Category 2: Benign appearance or behavior, continue annual screening Category 3: Probably benign, [address] recommended Category 4A: Suspicious, [address] recommended; may consider PET/CT Category 4B: Suspicious, Additional diagnostics and/or tissue sampling recommended Category 4X: Suspicious, Additional diagnostics and/or tissue sampling recommended Category 0: Recalls (incomplete screen due to Incomplete coverage, Noise, Respiratory motion, Expiration, Obscured by acute abnormality) This document has been electronically signed by: Radha Hawkins MD on 05/26/2024 09:31:04
--- OUTSIDE RECORDS SUMMARY | 2024-05-25 11:41 | XMS_ITS | Clinical Summary ---
Author Organization [facility] Address [address] [place] [address] Phone Care Team Providers Care Research Technician Name Role Phone Mallory Wagner MD Primary Care Provider [phone] Allergies No known active allergies Encounters Date Type Department Care Team Description 05/16/2024 9:55 AM EDT - 05/16/2024 2:40 PM EDT Emergency [facility] Emergency [address] [place] [address] Dizziness (Primary Dx) Discharge Disposition: [...] LAB CHEMISTRY METHOD 05/16/2024 1:46 PM EDT [facility] Blood Venous blood specimen / Unknown Venipuncture / Unknown 05/16/2024 12:29 PM EDT 05/16/2024 1:13 PM EDT Narrative JANIE BENSON PA ([facility]) [facility] - 05/16/2024 1:46 PM EDT High levels of biotin in samples may falsely decrease hsTroponin values. ??Use caution when interpreting hsTroponin results in patients taking biotin who exhibit renal impairment (eGFR <60) or in patients taking more than 20 mg/day of biotin. us Galdino Dang MD LAB BLOOD ORDERABLES Final Resu lt [facility] [address] [place] [address], * XR Chest 2 Views (05/16/2024 12:06 [...] Signed Date: 05/16/2024 12:28 ET Workstation ID: [id number] Transcribed By: Self Edit Transcribed Date: 05/16/2024 [...] Signed Date: 05/16/2024 12:28 ET Workstation ID: [id number] Transcribed By: Self Edit Transcribed Date: 05/16/2024 [...] Signed Date: 05/16/2024 12:18 ET Workstation ID: [id number] Transcribed By: Self Edit Transcribed Date: 05/16/2024 [...] Signed Date: 05/16/2024 12:18 ET Workstation ID: [id number] Transcribed By: Self Edit Transcribed Date: 05/16/2024 12:06 ET Miguel [facility] IM CT PROCEDURES Final Resul t * Urinalysis with reflex microscopic and culture (05/16/2024 11:38 AM EDT) Specific [place] Urine 1.018 1.003 - 1.030 LAB URINALYSIS - AUTOMATED METHOD 05/16/2024 12:08 PM [facility] pH, Urine 6.5 5.0 - 8.0 pH LAB URINALYSIS - AUTOMATED METHOD 05/16/2024 12:08 PM [facility] Leukocytes, Urine Negative Negative LAB URINALYSIS - AUTOMATED METHOD 05/16/2024 12:08 PM [facility] Nitrite, Urine Negative Negative LAB URINALYSIS - AUTOMATED METHOD 05/16/2024 12:08 PM [facility] Protein, Urine Negative <=Trace mg/dL LAB URINALYSIS - AUTOMATED METHOD 05/16/2024 12:08 PM [facility] Glucose, Urine Negative Negative mg/dL LAB URINALYSIS - AUTOMATED METHOD 05/16/2024 12:08 PM EDT [facility] Ketones, Urine Negative Negative mg/dL LAB URINALYSIS - AUTOMATED METHOD 05/16/2024 12:08 PM EDT [facility] Urobilinogen, Urine 0.2 0.2 - 1.0 mg/dL LAB URINALYSIS - AUTOMATED METHOD 05/16/2024 12:08 PM EDT [facility] Bilirubin, Urine Negative Negative LAB URINALYSIS - AUTOMATED METHOD 05/16/2024 12:08 PM EDT [facility] Blood, Urine Negative Negative LAB URINALYSIS - AUTOMATED METHOD 05/16/2024 12:08 PM EDT [facility] Urine Urine specimen obtained by clean catch procedure / Unknown Non-blood Collection / Unknown 05/16/2024 11:38 AM EDT 05/16/2024 11:50 AM EDT Miguel [facility] LAB URINE ORDERABLES Final Re sult Performing Organization Address [facility]/ZIP Co de Phone Number [facility] [address] [place] [address], [place] [phone] * Verma urine culture tube (05/16/2024 11:38 AM EDT) Extra Tube Hold for add-ons. 05/16/2024 1:01 PM EDT [facility] Comment:Auto resulted. Urine Urine specimen obtained by clean catch procedure / Unknown Non-blood Collection / Unknown 05/16/2024 11:38 AM EDT 05/16/2024 11:50 AM EDT us Miguel [facility] LAB URINE ORDERABLES Final Re sult Performing Organization Address City/[facility]/ZIP Co de Phone Number [facility] [address] [place] [address], [place] [phone] * (ABNORMAL) CBC auto differential (05/16/2024 11:15 AM EDT) [facility] WBC 10.6 4.8 - 10.8 K/mcL LAB HEMETOLOGY METHOD 05/16/2024 11:58 AM [facility] RBC 4.30 3.80 - 4.80 M/mcL LAB HEMETOLOGY METHOD 05/16/2024 11:58 AM [facility] Hemoglobin 13.9 11.5 - 16.0 g/dL LAB HEMETOLOGY METHOD 05/16/2024 11:58 AM [facility] Hematocrit 41.5 35.0 - 47.0 % LAB HEMETOLOGY METHOD 05/16/2024 11:58 AM [facility] MCV 96.5 79.0 - 98.0 FL LAB HEMETOLOGY METHOD 05/16/2024 11:58 AM [facility] MCH 32.3(H) 27.0 - 32.0 pcg LAB HEMETOLOGY METHOD 05/16/2024 11:58 AM [facility] MCHC 33.5 32.0 - 37.0 g/dL LAB HEMETOLOGY METHOD 05/16/2024 11:58 AM [facility] RDW 11.8 11.0 - 15.0 % LAB HEMETOLOGY METHOD 05/16/2024 11:58 AM [facility] Platelets 206 130 - 400 K/mcL LAB HEMETOLOGY METHOD 05/16/2024 11:58 AM [facility] MPV 9.8 7.0 - 11.0 FL LAB HEMETOLOGY METHOD 05/16/2024 11:58 AM [facility] NRBC 0.0 <1.0 % LAB HEMETOLOGY METHOD 05/16/2024 11:58 AM [facility] NRBC Absolute 0.00 <0.10 K/mcL LAB HEMETOLOGY METHOD 05/16/2024 11:58 AM [facility] Neutrophils Relative 77.6 % LAB HEMETOLOGY METHOD 05/16/2024 11:58 AM [facility] Lymphocytes Relative 15.0 % LAB HEMETOLOGY METHOD 05/16/2024 11:58 AM [facility] Monocytes Relative 4.9 % LAB HEMETOLOGY METHOD 05/16/2024 11:58 AM [facility] Eosinophils Relative 1.6 % LAB HEMETOLOGY METHOD 05/16/2024 11:58 AM [facility] Basophils Relative 0.4 % LAB HEMETOLOGY METHOD 05/16/2024 11:58 AM [facility] Immature Granulocytes Relative 0.5 % LAB HEMETOLOGY METHOD 05/16/2024 11:58 AM [facility] Neutrophils Absolute 8.23(H) 1.50 - 7.00 K/mcL LAB HEMETOLOGY METHOD 05/16/2024 11:58 AM [facility] Lymphocytes Absolute 1.59 1.00 - 5.00 K/mcL LAB HEMETOLOGY METHOD 05/16/2024 11:58 AM [facility] Monocytes Absolute 0.52 0.20 - 1.00 K/mcL LAB HEMETOLOGY METHOD 05/16/2024 11:58 AM [facility] Eosinophils Absolute 0.17 0.00 - 0.50 K/mcL LAB HEMETOLOGY METHOD 05/16/2024 11:58 AM [facility] Basophils Absolute 0.04 0.00 - 0.20 K/mcL LAB HEMETOLOGY METHOD 05/16/2024 11:58 AM [facility] Immature Granulocytes Absolute 0.05(H) 0.00 - 0.03 K/mcL LAB HEMETOLOGY METHOD 05/16/2024 11:58 AM [facility] Blood Venous blood specimen / Unknown Venipuncture / Unknown 05/16/2024 11:15 AM EDT 05/16/2024 11:46 AM EDT us Galdino Dang MD LAB BLOOD ORDERABLES Final Resu lt Performing Organization Address [facility]/ZIP Co de Phone Number [facility] [address] [place] [address], [place] [phone] * Magnesium (05/16/2024 11:15 AM EDT) Magnesium 2.2 1.9 - 2.6 mg/dL LAB CHEMISTRY METHOD 05/16/2024 12:25 PM EDT [facility] Blood Venous blood specimen / Unknown Venipuncture / Unknown 05/16/2024 11:15 AM EDT 05/16/2024 11:46 AM EDT us Galdino Dang MD LAB BLOOD ORDERABLES Final Resu lt Performing Organization Address [facility]/ZIP Co de Phone Number [facility] [address] [place] [address], [place] [phone] * (ABNORMAL) Basic metabolic panel (05/16/2024 11:15 AM EDT) Sodium 138 133 - 145 mmol/L LAB CHEMISTRY METHOD 05/16/2024 12:25 PM EDT [facility] Potassium 4.4 3.5 - 5.5 mmol/L LAB CHEMISTRY METHOD 05/16/2024 12:25 PM EDT [facility] Chloride 105 96 - 110 mmol/L LAB CHEMISTRY METHOD 05/16/2024 12:25 PM EDT [facility] CO2 27 21 - 32 mmol/L LAB CHEMISTRY METHOD 05/16/2024 12:25 PM EDT [facility] Anion Gap 6 3 - 11 LAB CHEMISTRY METHOD 05/16/2024 12:25 PM EDT [facility] Glucose 111(H) 70 - 100 mg/dL LAB CHEMISTRY METHOD 05/16/2024 12:25 PM EDT [facility] BUN 23 5 - 25 mg/dL LAB CHEMISTRY METHOD 05/16/2024 12:25 PM EDT [facility] Creatinine 0.68 0.50 - 1.10 mg/dL LAB CHEMISTRY METHOD 05/16/2024 12:25 PM EDT [facility] eGFR 92 >=60 mL/min/1. 73m2 LAB CHEMISTRY METHOD 05/16/2024 12:25 PM EDT [facility] Comment:Calculation based on the??Chronic Kidney Disease Epidemiology Collaboration (CKD-EPI) equation refit??without adjustment for race. BUN/Creatinine Ratio 33.8 LAB CHEMISTRY METHOD 05/16/2024 12:25 PM EDT [facility] Calcium 9.5 8.5 - 10.5 mg/dL LAB CHEMISTRY METHOD 05/16/2024 12:25 PM EDT [facility] Blood Venous blood specimen / Unknown Venipuncture / Unknown 05/16/2024 11:15 AM EDT 05/16/2024 11:46 AM EDT us Galdino Dang MD LAB BLOOD ORDERABLES Final Resu lt [facility] [address] [place] [address], * (ABNORMAL) POCT Glucose, blood (05/16/2024 11:13 AM EDT) Glucose POCT 105(H) 70 - 100 mg/dL 05/16/2024 11:14 AM EDT [facility] Blood Capillary blood specimen / Unknown 05/16/2024 11:13 AM EDT 05/16/2024 11:15 AM EDT us Generic Provider Poct LAB POINT OF CARE TEST DOCKED DEVICE UNSOLICITED RESULTS Final Result JANIE BENSON PA ([facility] [address] [place] [address], * ECG 12 lead (05/16/2024 11:06 AM EDT) Ventricular Rate ECG 70 BPM GEMUSE Atrial Rate 70 BPM GEMUSE P-R Interval 156 ms GEMUSE QRS Duration 74 ms GEMUSE Q-T Interval 388 ms GEMUSE QTc 419 ms GEMUSE P Wave [place] 48 degrees GEMUSE R [place] -6 degrees GEMUSE T [place] 17 degrees GEMUSE ECG Interpretation Normal sinus rhythm Normal ECG No previous ECGs available Confirmed by MD [id number] on 05/18/2024 1:00:53 AM GEMUSE 05/16/2024 11:0 6 AM EDT 05/18/2024 1:00 AM EDT Galdino Dang MD ECG ORDERABLES Final Result GEMUSE from Last 3 Months Insurance [phone] [place] [id number] [employer]AGE Care Teams Research Technician Relationship Specialty Start Date End Date Mallory Wagner MD [address] [place] [id number] PCP - General Internal Medicine 05/16/24
== END 2024-05-25 10:39 | disposition home or self-care (01) ==
LOC: HO.CT 10:38
PROVIDERS: PCP Internal Medicine; Visit Provider Nurse Practitioner Family
DX: Z12.2 Encounter for screening for malignant neoplasm of respiratory organs (principal); F17.210 Nicotine dependence, cigarettes, uncomplicated
CPT/HCPCS: 71271; G0296

== ENCOUNTER → 2024-05-25 10:40 | Outpatient (BNV) | payer MEDICARE, SELFPAY | PROVIDERS: PCP Internal Medicine; Visit Provider Radiology Diagnostic Radiology | DX: F17.210 Nicotine dependence, cigarettes, uncomplicated (principal) | CPT/HCPCS: 71271 ==

== ENCOUNTER 2024-06-06 09:58 | Outpatient (AMB) | payer MEDICARE, SELFPAY ==
[2024-06-06 10:00] VITALS: BP 104/66; PULSE 80; RESP 18; O2SAT 97; BMI 24.5
--- NOTE | 2024-06-06 10:00 | A.OFFPC_ITS ---
Vital Signs 06/06/24 10:00 Height 5 ft 8 in Weight 161 lb BMI 24.5 BP 104/66 Blood Pressure Location Rt brachial Position Sitting Respiration 18 Pulse 80 Pulse Source Pulse Oximeter Pulse Oximetry (%) 97 Oxygen Delivery Method Room Air Intake Visit Reasons: Hospital Follow up Intake Note: Pt is here today for Hospital follow up visit. Allergies codeine Allergy (Unknown, Verified 06/06/24 10:04) Headache Medication List - Last Reconciled 06/06/24 by Mallory Wagner MD coenzyme Q10 (H2Q CoQ10) PO multivitamin 1 tab PO DAILY [pre probiotic PO] thiamine HCl (vitamin B1) 100 mg PO DAILY Tobacco use date assessed: 06/06/24 Dental Screening Dental Screen Date: 03/08/24 HPI Hospital Follow up HPI Details Patient presents for the follow-up of [facility] ER visit for episode of lightheadedness. No discharge summary available. Neuro and cardiac workup were negative. Patient lives in assisted living facility and is feeling well. She is socially engaged and physically active [facility] Medical History (Updated 06/06/24 @ 10:49 by Mallory Wagner MD) Nicotine dependence, cigarettes, uncomplicated Colonoscopy refused Hyperlipidemia Depression Surgical History No pertinent past surgical history Family History Father No problems noted. Mother No problems noted. Social History Housing: Condominium Patient Tobacco Use Status: Current everyday Tobacco user Cigarettes Per Day: 4 Years Smoked: (onset 16yo, 1/2ppd x 57yrs, now 1/4ppd, 25pyh) e-Cigarette/Vaping Use: Never Used service: No Current occupational status: retired Cognitive needs: No Hearing needs: No Vision needs: Yes Questionnaire Thrive Questionnaire Date Thrive assessed: 03/08/24 I am a: Patient What is your living situation today?: I have a place to live, but I am worried about losing it in the future Within the past 12 months, did the food you bought not last and you didn't have the money to get more?: Never true Within the past 12 months, did you worry whether your food would run out before you got money to buy more?: Never true Do you have trouble paying for medicines?: No Do you have trouble getting transportation to medical appointments?: No Do you have trouble paying your heating and electricity bill?: No Do you have trouble taking care of your child, family member or friend?: No Do you have trouble with day-to-day activities such as bathing, preparing meals, shopping, managing finances, etc.?: No Are you currently unemployed and looking for a job?: No Are you interested in more education?: No Please select the resources that you would like help with: Housing/Intermediate Currently or been in a relationship where the following occur: No concerns reported THRIVE Score: 1 BELEM-7 AMB Questionnaire BELEM-7 Date BELEM - 7 assessed: 03/08/24 Source: Developed by Drs. Mihir Yeung, Opal Dawn, Cesar Rebolledo and colleagues, with an educational jose armando from [employer]. Review of Systems Const All systems reviewed & are unremarkable except as noted in HPI and below ENT Reports no additional complaints Card Reports no additional complaints Resp Reports no additional complaints GI Reports no additional complaints Reports no additional complaints Physical exam (Primary Care) Vital Signs: Last Vital Signs Pulse 80 06/06/24 10:00 Resp 18 06/06/24 10:00 BP 104/66 06/06/24 10:00 Pulse Ox 97 06/06/24 10:00 Oxygen Delivery Method Room Air 06/06/24 10:00 BMI result Body Mass Index 24.5 Tobacco/Smoking Status: Tobacco use Status Tobacco use date assessed 06/06/24 06/06/24 10:01 Patient Tobacco Use Status Current everyday Tobacco 06/06/24 10:00 e-Cigarette/Vaping Use Never Used 06/06/24 10:00 Thrive Assessment: Date of Thrive Assessment Date Thrive assessed 03/08/24 06/06/24 10:00 Currently or been in a relationship where the following occur: No concerns reported Const General: no acute distress HENMT Head: Yes normal to inspection Face and sinus: Yes normal facial exam Eyes General: appearance normal, both eyes and all related structures Neck Neck: Yes no lymphadenopathy and Yes supple Resp Effort & Inspection: normal respiratory effort Auscultation: clear to auscultation bilaterally Cardio Rhythm: regular rhythm Heart sounds: S1 normal heart sound present and S2 normal heart sound present Coding Level of Care Code Est Pt Level 3 (40796) Diagnoses Vitamin D deficiency E55.9 Thiamine deficiency E51.9 Vitamin B12 deficiency E53.8 Assessment & Plan Assessment & Plan (1) Vitamin D deficiency: Code(s): E55.9 - Vitamin D deficiency, unspecified Category: Medical Plan: Continue vitamin-D supplement check the level (2) Thiamine deficiency: Code(s): E51.9 - Thiamine deficiency, unspecified Category: Medical Plan: Continue thiamine supplement (3) Vitamin B12 deficiency: Code(s): E53.8 - Deficiency of other specified B group vitamins Category: Medical Plan: Continue vitamin B12. Orders: Orders Vitamin D 25-OH (D2 and D3) Today E51.9 - Thiamine deficiency, unspecified, E53.8 - Deficiency of other specified B group vitamins, E55.9 - Vitamin D deficiency, unspecified Vitamin B12 and Folate Today E51.9 - Thiamine deficiency, unspecified, E53.8 - Deficiency of other specified B group vitamins, E55.9 - Vitamin D deficiency, unspecified Vitamin B1 Today E51.9 - Thiamine deficiency, unspecified, E53.8 - Deficiency of other specified B group vitamins, E55.9 - Vitamin D deficiency, unspecified
--- OUTSIDE RECORDS SUMMARY | 2024-06-06 10:56 | XMS_ITS | Clinical Summary ---
Author Organization [facility] Address [address] [place] [address] Phone Care Team Providers Care Assistant Executive Housekeeper Name Role Phone Mallory Wagner MD Primary Care Provider [phone] Allergies No known active allergies Encounters Date Type Department Care Team Description 05/16/2024 9:55 AM EDT - 05/16/2024 2:40 PM EDT Emergency [facility] Emergency [address] [place] [address] Dizziness (Primary Dx) Discharge Disposition: [...] LAB CHEMISTRY METHOD 05/16/2024 1:46 PM EDT [facility] Blood Venous blood specimen / Unknown Venipuncture / Unknown 05/16/2024 12:29 PM EDT 05/16/2024 1:13 PM EDT Narrative [place] ([facility]) [facility] - 05/16/2024 1:46 PM EDT High levels of biotin in samples may falsely decrease hsTroponin values. ??Use caution when interpreting hsTroponin results in patients taking biotin who exhibit renal impairment (eGFR <60) or in patients taking more than 20 mg/day of biotin. us Galdino Dang MD LAB BLOOD ORDERABLES Final Resu lt [facility] [address] [place] [address], * XR Chest 2 Views (05/16/2024 12:06 [...] Signed Date: 05/16/2024 12:28 ET Workstation ID: [id number] Transcribed By: Self Edit Transcribed Date: 05/16/2024 [...] Signed Date: 05/16/2024 12:28 ET Workstation ID: [id number] Transcribed By: Self Edit Transcribed Date: 05/16/2024 [...] Signed Date: 05/16/2024 12:18 ET Workstation ID: [id number] Transcribed By: Self Edit Transcribed Date: 05/16/2024 [...] Signed Date: 05/16/2024 12:18 ET Workstation ID: [id number] Transcribed By: Self Edit Transcribed Date: 05/16/2024 12:06 ET Miguel [facility] IM CT PROCEDURES Final Resul t * Urinalysis with reflex microscopic and culture (05/16/2024 11:38 AM EDT) Specific [place] Urine 1.018 1.003 - 1.030 LAB URINALYSIS - AUTOMATED METHOD 05/16/2024 12:08 PM [facility] pH, Urine 6.5 5.0 - 8.0 pH LAB URINALYSIS - AUTOMATED METHOD 05/16/2024 12:08 PM [facility] Leukocytes, Urine Negative Negative LAB URINALYSIS - AUTOMATED METHOD 05/16/2024 12:08 PM [facility] Nitrite, Urine Negative Negative LAB URINALYSIS - AUTOMATED METHOD 05/16/2024 12:08 PM [facility] Protein, Urine Negative <=Trace mg/dL LAB URINALYSIS - AUTOMATED METHOD 05/16/2024 12:08 PM [facility] Glucose, Urine Negative Negative mg/dL LAB URINALYSIS - AUTOMATED METHOD 05/16/2024 12:08 PM EDT [facility] Ketones, Urine Negative Negative mg/dL LAB URINALYSIS - AUTOMATED METHOD 05/16/2024 12:08 PM EDT [facility] Urobilinogen, Urine 0.2 0.2 - 1.0 mg/dL LAB URINALYSIS - AUTOMATED METHOD 05/16/2024 12:08 PM EDT [facility] Bilirubin, Urine Negative Negative LAB URINALYSIS - AUTOMATED METHOD 05/16/2024 12:08 PM EDT [facility] Blood, Urine Negative Negative LAB URINALYSIS - AUTOMATED METHOD 05/16/2024 12:08 PM EDT [facility] Urine Urine specimen obtained by clean catch procedure / Unknown Non-blood Collection / Unknown 05/16/2024 11:38 AM EDT 05/16/2024 11:50 AM EDT Miguel [facility] LAB URINE ORDERABLES Final Re sult Performing Organization Address [facility]/ZIP Co de Phone Number [facility] [address] [place] [address], [place] [phone] * Verma urine culture tube (05/16/2024 11:38 AM EDT) Extra Tube Hold for add-ons. 05/16/2024 1:01 PM EDT [facility] Comment:Auto resulted. Urine Urine specimen obtained by clean catch procedure / Unknown Non-blood Collection / Unknown 05/16/2024 11:38 AM EDT 05/16/2024 11:50 AM EDT us Miguel [facility] LAB URINE ORDERABLES Final Re sult Performing Organization Address City/[facility]/ZIP Co de Phone Number [facility] [address] [place] [address], [place] [phone] * (ABNORMAL) CBC auto differential (05/16/2024 11:15 AM EDT) [facility] WBC 10.6 4.8 - 10.8 K/mcL LAB HEMETOLOGY METHOD 05/16/2024 11:58 AM [facility] RBC 4.30 3.80 - 4.80 M/mcL LAB HEMETOLOGY METHOD 05/16/2024 11:58 AM [facility] Hemoglobin 13.9 11.5 - 16.0 g/dL LAB HEMETOLOGY METHOD 05/16/2024 11:58 AM [facility] Hematocrit 41.5 35.0 - 47.0 % LAB HEMETOLOGY METHOD 05/16/2024 11:58 AM [facility] MCV 96.5 79.0 - 98.0 FL LAB HEMETOLOGY METHOD 05/16/2024 11:58 AM [facility] MCH 32.3(H) 27.0 - 32.0 pcg LAB HEMETOLOGY METHOD 05/16/2024 11:58 AM [facility] MCHC 33.5 32.0 - 37.0 g/dL LAB HEMETOLOGY METHOD 05/16/2024 11:58 AM [facility] RDW 11.8 11.0 - 15.0 % LAB HEMETOLOGY METHOD 05/16/2024 11:58 AM [facility] Platelets 206 130 - 400 K/mcL LAB HEMETOLOGY METHOD 05/16/2024 11:58 AM [facility] MPV 9.8 7.0 - 11.0 FL LAB HEMETOLOGY METHOD 05/16/2024 11:58 AM [facility] NRBC 0.0 <1.0 % LAB HEMETOLOGY METHOD 05/16/2024 11:58 AM [facility] NRBC Absolute 0.00 <0.10 K/mcL LAB HEMETOLOGY METHOD 05/16/2024 11:58 AM [facility] Neutrophils Relative 77.6 % LAB HEMETOLOGY METHOD 05/16/2024 11:58 AM [facility] Lymphocytes Relative 15.0 % LAB HEMETOLOGY METHOD 05/16/2024 11:58 AM [facility] Monocytes Relative 4.9 % LAB HEMETOLOGY METHOD 05/16/2024 11:58 AM [facility] Eosinophils Relative 1.6 % LAB HEMETOLOGY METHOD 05/16/2024 11:58 AM [facility] Basophils Relative 0.4 % LAB HEMETOLOGY METHOD 05/16/2024 11:58 AM [facility] Immature Granulocytes Relative 0.5 % LAB HEMETOLOGY METHOD 05/16/2024 11:58 AM [facility] Neutrophils Absolute 8.23(H) 1.50 - 7.00 K/mcL LAB HEMETOLOGY METHOD 05/16/2024 11:58 AM [facility] Lymphocytes Absolute 1.59 1.00 - 5.00 K/mcL LAB HEMETOLOGY METHOD 05/16/2024 11:58 AM [facility] Monocytes Absolute 0.52 0.20 - 1.00 K/mcL LAB HEMETOLOGY METHOD 05/16/2024 11:58 AM [facility] Eosinophils Absolute 0.17 0.00 - 0.50 K/mcL LAB HEMETOLOGY METHOD 05/16/2024 11:58 AM [facility] Basophils Absolute 0.04 0.00 - 0.20 K/mcL LAB HEMETOLOGY METHOD 05/16/2024 11:58 AM [facility] Immature Granulocytes Absolute 0.05(H) 0.00 - 0.03 K/mcL LAB HEMETOLOGY METHOD 05/16/2024 11:58 AM [facility] Blood Venous blood specimen / Unknown Venipuncture / Unknown 05/16/2024 11:15 AM EDT 05/16/2024 11:46 AM EDT us Galdino Dang MD LAB BLOOD ORDERABLES Final Resu lt Performing Organization Address [facility]/ZIP Co de Phone Number [facility] [address] [place] [address], [place] [phone] * Magnesium (05/16/2024 11:15 AM EDT) Magnesium 2.2 1.9 - 2.6 mg/dL LAB CHEMISTRY METHOD 05/16/2024 12:25 PM EDT [facility] Blood Venous blood specimen / Unknown Venipuncture / Unknown 05/16/2024 11:15 AM EDT 05/16/2024 11:46 AM EDT us Galdino Dang MD LAB BLOOD ORDERABLES Final Resu lt Performing Organization Address [facility]/ZIP Co de Phone Number [facility] [address] [place] [address], [place] [phone] * (ABNORMAL) Basic metabolic panel (05/16/2024 11:15 AM EDT) Sodium 138 133 - 145 mmol/L LAB CHEMISTRY METHOD 05/16/2024 12:25 PM EDT [facility] Potassium 4.4 3.5 - 5.5 mmol/L LAB CHEMISTRY METHOD 05/16/2024 12:25 PM EDT [facility] Chloride 105 96 - 110 mmol/L LAB CHEMISTRY METHOD 05/16/2024 12:25 PM EDT [facility] CO2 27 21 - 32 mmol/L LAB CHEMISTRY METHOD 05/16/2024 12:25 PM EDT [facility] Anion Gap 6 3 - 11 LAB CHEMISTRY METHOD 05/16/2024 12:25 PM EDT [facility] Glucose 111(H) 70 - 100 mg/dL LAB CHEMISTRY METHOD 05/16/2024 12:25 PM EDT [facility] BUN 23 5 - 25 mg/dL LAB CHEMISTRY METHOD 05/16/2024 12:25 PM EDT [facility] Creatinine 0.68 0.50 - 1.10 mg/dL LAB CHEMISTRY METHOD 05/16/2024 12:25 PM EDT [facility] eGFR 92 >=60 mL/min/1. 73m2 LAB CHEMISTRY METHOD 05/16/2024 12:25 PM EDT [facility] Comment:Calculation based on the??Chronic Kidney Disease Epidemiology Collaboration (CKD-EPI) equation refit??without adjustment for race. BUN/Creatinine Ratio 33.8 LAB CHEMISTRY METHOD 05/16/2024 12:25 PM EDT [facility] Calcium 9.5 8.5 - 10.5 mg/dL LAB CHEMISTRY METHOD 05/16/2024 12:25 PM EDT [facility] Blood Venous blood specimen / Unknown Venipuncture / Unknown 05/16/2024 11:15 AM EDT 05/16/2024 11:46 AM EDT us Galdino Dang MD LAB BLOOD ORDERABLES Final Resu lt [facility] [address] [place] [address], * (ABNORMAL) POCT Glucose, blood (05/16/2024 11:13 AM EDT) Glucose POCT 105(H) 70 - 100 mg/dL 05/16/2024 11:14 AM EDT [facility] Blood Capillary blood specimen / Unknown 05/16/2024 11:13 AM EDT 05/16/2024 11:15 AM EDT us Generic Provider Poct LAB POINT OF CARE TEST DOCKED DEVICE UNSOLICITED RESULTS Final Result [facility] ([facility] [address] [place] [address], * ECG 12 lead (05/16/2024 11:06 AM EDT) Ventricular Rate ECG 70 BPM GEMUSE Atrial Rate 70 BPM GEMUSE P-R Interval 156 ms GEMUSE QRS Duration 74 ms GEMUSE Q-T Interval 388 ms GEMUSE QTc 419 ms GEMUSE P Wave [place] 48 degrees GEMUSE R [place] -6 degrees GEMUSE T [place] 17 degrees GEMUSE ECG Interpretation Normal sinus rhythm Normal ECG No previous ECGs available Confirmed by MD Vincent, [facility] ([id number] on 05/18/2024 1:00:53 AM GEMUSE 05/16/2024 11:0 6 AM EDT 05/18/2024 1:00 AM EDT Galdino Dang MD ECG ORDERABLES Final Result GEMUSE from Last 3 Months Insurance [phone] [place] [id number] [employer] MED[employer]AGE Care Teams Assistant Executive Housekeeper Relationship Specialty Start Date End Date Mallory Wagner MD [address] [place] [id number] PCP - General Internal Medicine 05/16/24
== END 2024-06-06 11:07 | disposition home or self-care (01) ==
LOC: HO.HMCC 09:59
PROVIDERS: PCP Internal Medicine; Visit Provider Internal Medicine
DX: E55.9 Vitamin D deficiency, unspecified (principal); E51.9 Thiamine deficiency, unspecified; E53.8 Deficiency of other specified B group vitamins

== ENCOUNTER → 2024-06-06 09:58 | Outpatient (BNVA) | payer MEDICARE, SELFPAY | PROVIDERS: PCP Internal Medicine; Visit Provider Internal Medicine | DX: E55.9 Vitamin D deficiency, unspecified (principal); E51.9 Thiamine deficiency, unspecified; E53.8 Deficiency of other specified B group vitamins | CPT/HCPCS: 99212 ==

== ENCOUNTER 2024-07-30 13:33 | Outpatient (AMB) | payer MEDICARE, SELFPAY ==
--- NOTE | 2024-07-30 13:33 | MHC.OFFVIS ---
Vital Signs 07/30/24 13:34 Height 5 ft 8 in Weight 162 lb BMI 24.6 BP 100/62 Blood Pressure Location Rt brachial Position Sitting Pulse 86 Pulse Source Pulse Oximeter Pulse Oximetry (%) 99 Oxygen Delivery Method Room Air Intake Visit Reasons: INP-Dementia Intake Note: patient referred inhouse Mallory Cherellelachomatteo for unspecified Dementia Allergies codeine Allergy (Unknown, Verified 07/30/24 13:37) Headache Medication List - Last Reconciled 07/30/24 by Jennifer Bryan MD coenzyme Q10 (H2Q CoQ10) PO multivitamin 1 tab PO DAILY [pre probiotic PO] thiamine HCl (vitamin B1) 100 mg PO DAILY HPI Comments Details: 74y/o Right handed female comes for evaluation of cognitive decline. 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 Since then she has been having short term memory issues and some shelter issues. she has trouble remembering her bank accounts and [employer] account. Recently they realized she had withdrawn money from her [employer] and brooke snot remember where the money is. she had to move out of [employer] 3 mths ago- by court order . she stopped paying her house mortgage and the [employer] was foreclosed. [employer] has not been cleaned in past 15 years with lot of hoarding , had a cat that did not use litter box. [facility] stepped in move out . Her significant other passed in 2013 and all his things were still there. she did not remember that the cat passed 2 years ago. The house still had cat feces . 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 she was drinking vodka - 2 drinks a day - stopped 4 mths ago Smoking -1/2 ppd [facility] Medical History (Updated 07/30/24 @ 14:11 by Jennifer Bryan MD) Cognitive change Cognitive decline Nicotine dependence, cigarettes, uncomplicated Colonoscopy refused Hyperlipidemia Depression Surgical History No pertinent past surgical history Family History Father No problems noted. Mother No problems noted. Social History Housing: Condominium Patient Tobacco Use Status: Current everyday Tobacco user Cigarettes Per Day: 4 Years Smoked: (onset 16yo, 1/2ppd x 57yrs, now 1/4ppd, 25pyh) e-Cigarette/Vaping Use: Never Used service: No Current occupational status: retired Cognitive needs: No Hearing needs: No Vision needs: Yes Physical Exam Vital Signs: Last Vital Signs Pulse 86 07/30/24 13:34 BP 100/62 07/30/24 13:34 Pulse Ox 99 07/30/24 13:34 Oxygen Delivery Method Room Air 07/30/24 13:34 BMI result Body Mass Index 24.6 Const General: cooperative, healthy appearing, comfortable and no acute distress Nutritional Appearance: average body habitus Eyes Pupils: Equal, round and reactive pupils present Neuro General: tone normal, moves all extremities and no focal motor deficits Cranial nerves: Yes Facial sensation intact/muscles of mastication intact, Yes Equal, round and reactive pupils present, Yes Bilaterally intact EOM present, Yes Nystagmus not present, Yes Normal facial strength present, Yes Midline tongue present and Yes Ability to bilaterally elevate shoulders present Gait exam (Neuro): Antalgic gait present Motor exam (neuro): 5/5 motor strength present throughout and Normal motor muscle tone present throughout Deep tendon reflexes (DTR's): Right triceps reflex intensity grade: 1+, Left triceps reflex intensity grade: 1+, Rt Biceps (C5, C6): 1+, Left biceps reflex intensity grade: 1+, Right brachioradialis reflex intensity grade: 1+, Left brachioradialis reflex intensity grade: 1+, Right patellar reflex intensity grade: 1+ and Left patellar reflex intensity grade: 1+ Coordination: [id number] test normal Orientation What is the (year) (season) (date) (day) (month)?: year, season, date, day and month Where are we (state) (county) (town or city) (hospital) (floor)?: state and hospital/clinic Registration Name of 3 unrelated objects clearly and slowly, then ask patient to repeat all 3 of them. (1st repeat determines score. Make sure they can repeat all three): object 1, object 2 and object 3 Attention & Calculation (CHOOSE ONE) Spell WORLD backwards (DLROW): 5 letters Recall Ask patient to repeat the 3 items from question #3.: object 1 Language Show patient a wristwatch & ask what it is. Repeat for pencil.: watch and pencil Ask the patient to repeat the phrase 'No ifs, ands, or buts' after you.: correct Ask the patient to 'take a piece of paper with their right hand' 'fold paper in half' 'place paper on floor': take paper in right hand, fold paper in half and place paper on floor Print the sentence 'CLOSE YOUR EYES' on a piece. If patient actually closes eyes then score.: followed written direction Give patient a blank piece of paper & ask to write a sentence. Score if it contains a noun & verb.: sentence contains subject and verb Ask patient to copy figure of intersecting pentagons exactly. Score if all 10 angles & 2 intersects are included.: all 10 angles present & 2 are intersected Score Score: 25 Assessment & Plan Assessment & Plan (1) Cognitive decline: Comment: related to vascular risk factors , mood, alcohol etc Code(s): R41.89 - Other symptoms and signs involving cognitive functions and awareness Category: Medical (2) Thiamine deficiency: Code(s): E51.9 - Thiamine deficiency, unspecified Category: Medical Plan She is doing better at independent living I will evaluate her with MRI brain Cognitive eval and therapy donepezil 5mg qd for 4 weeks then 10mg qd Orders: Orders MR head/brain wo con Today R41.89 - Other symptoms and signs involving cognitive functions and awareness Referrals Speech and Hearing Referral R41.89 - Other symptoms and signs involving cognitive functions and awareness Medications: New donepezil start with 1/2 tab for 4 weeks then 1 tab qd 10 mg PO BEDTIME 30 tabs 6RF Coding Level of Care Code New Pt Level 4 (24744) Complex EM visit Add On G2211 Diagnoses Cognitive decline R41.89 Thiamine deficiency E51.9
[2024-07-30 13:34] VITALS: BP 100/62; PULSE 86; O2SAT 99; BMI 24.6
--- OUTSIDE RECORDS SUMMARY | 2024-07-30 14:57 | XMS_ITS | Clinical Summary ---
Author Organization [facility] Address [address] [place] [address] Phone Care Team Providers Care Shift Supervisor Melting Name Role Phone Mallory Wagner MD Primary Care Provider [phone] Allergies No known active allergies Encounters Date Type Department Care Team Description 05/16/2024 9:55 AM EDT - 05/16/2024 2:[address] [facility] Emergency [address] [place] [address] Dizziness (Primary Dx) Discharge Disposition: [...] 70 05/16/2024 1:06 PM EDT Temperature 37 C (98.6 F) 05/16/2024 10:14 AM EDT Respiratory Rate 18 [...] PM EDT 05/16/2024 1:13 PM EDT Narrative [facility] ([facility]) [facility] - 05/16/2024 1:46 PM EDT High levels of biotin in samples may falsely decrease hsTroponin values. Use caution when interpreting hsTroponin results in patients taking biotin who exhibit renal impairment (eGFR <60) or in patients taking more than 20 mg/day of biotin. us Galdino Dang MD LAB BLOOD ORDERABLES Final Resu lt [facility] ([facility]) [facility] [address] [place] [address], [place] [phone] * XR Chest 2 Views (05/16/2024 12:06 PM EDT) Anatomical Region Laterality Modality Body Radiographic Janice ging 05/16/2024 12:2 8 PM EDT Impressions 05/16/2024 12:28 PM EDT FINDINGS/IMPRESSION: Lungs are clear. No pleural effusion or pneumothorax. Cardiac silhouette is normal in size. Degenerative changes seen throughout the bones. -------- FINAL REPORT -------- Dictated By: TAYLOR LANTIGUA Dictated Date: 05/16/2024 12:28 ET Assigned Physician: TAYLOR LANTIGUA Reviewed and Electronically Signed By: TAYLOR LANTIGUA Signed Date: 05/16/2024 12:28 ET Workstation ID: [id number] Transcribed By: Self Edit Transcribed Date: 05/16/2024 12:28 ET Narrative 05/16/2024 12:28 PM EDT XR CHEST 2 VIEWS INDICATION: Pain TECHNIQUE: [...] Signed Date: 05/16/2024 12:28 ET Workstation ID: [id number] Transcribed By: Self Edit Transcribed Date: 05/16/2024 [...] Signed Date: 05/16/2024 12:18 ET Workstation ID: [id number] Transcribed By: Self Edit Transcribed Date: 05/16/2024 12:06 ET Narrative 05/16/2024 12:18 PM EDT PROCEDURE: HEAD CT INDICATION: Venous TECHNIQUE: CT of the head without intravenous contrast. Multiplanar reformats. The examination was performed utilizing dose reduction techniques. Total DLP 809 COMPARISON: No priors available. FINDINGS: No acute territorial infarct, mass effect, or intracranial hemorrhage. Mild scattered periventricular and subcortical white matter hypodensities are most likely related to chronic small vessel ischemic change. Mild diffuse cerebral and cerebellar volume loss with prominence of ventricles, sulci, and cisterns. No hydrocephalus. Scattered mucosal thickening seen throughout the sinuses. Mastoid air cells are clear. No scalp hematoma [...] Signed Date: 05/16/2024 12:18 ET Workstation ID: [id number] Transcribed By: Self Edit Transcribed Date: 05/16/2024 12:06 ET Miguel [facility] IMG CT PROCEDURES Final Resul t * Urinalysis with reflex microscopic and culture (05/16/2024 11:38 AM EDT) Specific [place] Urine 1.018 1.003 - 1.030 LAB URINALYSIS - AUTOMATED METHOD 05/16/2024 12:08 PM [facility] pH, Urine 6.5 5.0 - 8.0 pH LAB URINALYSIS - AUTOMATED METHOD 05/16/2024 12:08 PM [facility] Leukocytes, Urine Negative Negative LAB URINALYSIS - AUTOMATED METHOD 05/16/2024 12:08 PM [facility] Nitrite, Urine Negative Negative LAB URINALYSIS - AUTOMATED METHOD 05/16/2024 12:08 PM [facility] Protein, Urine Negative <=Trace mg/dL LAB URINALYSIS - AUTOMATED METHOD 05/16/2024 12:08 PM [facility] Glucose, Urine Negative Negative mg/dL LAB URINALYSIS - AUTOMATED METHOD 05/16/2024 12:08 PM [facility] Ketones, Urine Negative Negative [...] ORDERABLES Final Re sult Performing Organization Address [facility]/ZIP Co de Phone Number [facility] [address] [place] [address], [place] [phone] * Verma urine culture tube (05/16/2024 11:38 AM EDT) Extra Tube Hold for add-ons. 05/16/2024 1:01 PM EDT [facility] Comment:Auto resulted. Urine Urine specimen obtained by clean catch procedure / Unknown Non-blood Collection / Unknown 05/16/2024 11:38 AM EDT 05/16/2024 11:50 AM EDT us Miguel [facility] LAB URINE ORDERABLES Final Re sult [facility] [address] [place] [address], [place] [phone] * (ABNORMAL) CBC auto differential (05/16/2024 11:15 AM EDT) WBC 10.6 4.8 - 10.8 K/mcL LAB HEMETOLOGY METHOD 05/16/2024 11:58 AM [facility] RBC 4.30 3.80 - 4.80 M/mcL LAB HEMETOLOGY METHOD 05/16/2024 11:58 AM [facility] Hemoglobin 13.9 11.5 - 16.0 g/dL LAB HEMETOLOGY METHOD 05/16/2024 11:58 AM [facility] Hematocrit 41.5 35.0 - 47.0 % LAB HEMETOLOGY METHOD 05/16/2024 11:58 AM [facility] MCV 96.5 79.0 - 98.0 FL LAB HEMETOLOGY METHOD 05/16/2024 11:58 AM [facility] MCH 32.3(H) 27.0 - 32.0 pcg LAB HEMETOLOGY METHOD 05/16/2024 11:58 AM [facility] MCHC 33.5 32.0 - 37.0 g/dL LAB HEMETOLOGY METHOD 05/16/2024 11:58 AM [facility] RDW 11.8 11.0 - 15.0 % LAB HEMETOLOGY METHOD 05/16/2024 11:58 AM [facility] Platelets 206 130 - 400 K/mcL LAB HEMETOLOGY METHOD 05/16/2024 11:58 AM [facility] MPV 9.8 7.0 - 11.0 FL LAB HEMETOLOGY METHOD 05/16/2024 11:58 AM [facility] NRBC 0.0 <1.0 % LAB HEMETOLOGY METHOD 05/16/2024 11:58 AM [facility] NRBC Absolute 0.00 <0.10 K/mcL LAB HEMETOLOGY METHOD 05/16/2024 11:58 AM [facility] Neutrophils Relative 77.6 % LAB HEMETOLOGY METHOD 05/16/2024 11:58 AM [facility] Lymphocytes Relative 15.0 % LAB HEMETOLOGY METHOD 05/16/2024 11:58 AM [facility] Monocytes Relative 4.9 % LAB HEMETOLOGY METHOD 05/16/2024 11:58 AM [facility] Eosinophils Relative 1.6 % LAB HEMETOLOGY METHOD 05/16/2024 11:58 AM [facility] Basophils Relative 0.4 % LAB HEMETOLOGY METHOD 05/16/2024 11:58 AM [facility] Immature Granulocytes Relative 0.5 % LAB HEMETOLOGY METHOD 05/16/2024 11:58 AM [facility] Neutrophils Absolute 8.23(H) 1.50 - 7.00 K/mcL LAB HEMETOLOGY METHOD 05/16/2024 11:58 AM [facility] Lymphocytes Absolute 1.59 1.00 - 5.00 K/mcL LAB HEMETOLOGY METHOD 05/16/2024 11:58 AM [facility] Monocytes Absolute 0.52 0.20 - 1.00 K/mcL LAB HEMETOLOGY METHOD 05/16/2024 11:58 AM [facility] Eosinophils Absolute 0.17 0.00 - 0.50 K/mcL LAB HEMETOLOGY METHOD 05/16/2024 11:58 AM [facility] Basophils Absolute 0.04 0.00 - 0.20 K/mcL LAB HEMETOLOGY METHOD 05/16/2024 11:58 AM [facility] Immature Granulocytes Absolute 0.05(H) 0.00 - 0.03 K/mcL LAB HEMETOLOGY METHOD 05/16/2024 11:58 AM [facility] Blood Venous blood specimen / Unknown Venipuncture / Unknown 05/16/2024 11:15 AM EDT 05/16/2024 11:46 AM EDT us Galdino Dang MD LAB BLOOD ORDERABLES Final Resu lt Performing Organization Address City/[facility]/ZIP Co de Phone Number [facility] [address] [place] [address], [place] [phone] * Magnesium (05/16/2024 11:15 AM EDT) [facility] Magnesium 2.2 1.9 - 2.6 mg/dL LAB CHEMISTRY METHOD 05/16/2024 12:25 PM EDT [facility] Blood Venous blood specimen / Unknown Venipuncture / Unknown 05/16/2024 11:15 AM EDT 05/16/2024 11:46 AM EDT us Galdino Dang MD LAB BLOOD ORDERABLES Final Resu lt Performing Organization Address City/[facility]/ZIP Co de Phone Number [facility] [address] [place] [address], [place] [phone] * (ABNORMAL) Basic metabolic panel (05/16/2024 11:15 AM EDT) [facility] Sodium 138 133 - 145 mmol/L LAB CHEMISTRY METHOD 05/16/2024 12:25 PM T [facility] Potassium 4.4 3.5 - 5.5 mmol/L LAB CHEMISTRY METHOD 05/16/2024 12:25 PM T [facility] Chloride 105 96 - 110 mmol/L LAB CHEMISTRY METHOD 05/16/2024 12:25 PM [facility] CO2 27 21 - 32 mmol/L LAB CHEMISTRY METHOD 05/16/2024 12:25 PM [facility] Anion Gap 6 3 - 11 LAB CHEMISTRY METHOD 05/16/2024 12:[facility] Glucose 111(H) 70 - 100 [...] [facility] Comment:Calculation based on the Chronic Kidney Disease Epidemiology Collaboration (CKD-EPI) equation refit without adjustment for race. BUN/Creatinine Ratio 33.8 LAB [...] Resu lt [facility] [address] [place] [address], * (ABNORMAL) POCT Glucose, blood (05/16/2024 11:13 AM EDT) Glucose POCT 105(H) 70 - 100 mg/dL 05/16/2024 11:14 AM EDT [facility] Blood Capillary blood specimen / Unknown 05/16/2024 11:13 AM EDT 05/16/2024 11:15 AM EDT us Generic Provider Poct LAB POINT OF CARE TEST DOCKED DEVICE UNSOLICITED RESULTS Final Result [facility] [address] [place] [address], * ECG 12 lead (05/16/2024 11:06 AM EDT) Ventricular Rate ECG 70 BPM GEMUSE Atrial Rate 70 BPM GEMUSE P-R Interval 156 ms GEMUSE QRS Duration 74 ms GEMUSE Q-T Interval 388 ms GEMUSE QTc 419 ms GEMUSE P Wave [place] 48 degrees GEMUSE R [place] -6 degrees GEMUSE T [place] 17 degrees GEMUSE ECG Interpretation Normal sinus rhythm Normal ECG No previous ECGs available Confirmed by MD Vincent, Jay ([id number]) on 05/18/2024 1:00:53 AM GEMUSE 05/16/2024 11:0 6 AM EDT 05/18/2024 1:00 AM EDT Galdino Dang MD ECG ORDERABLES Final Result [facility] from Last 3 Months Insurance [employer] MED[employer]ARE [employer] Care Teams Shift Supervisor Melting Relationship Specialty Start Date End Date Mallory Wagner MD [address] [place] [place] [address] PCP - General Internal Medicine 05/16/24
== END 2024-07-30 14:15 | disposition home or self-care (01) ==
LOC: HO.HSMS 13:33
PROVIDERS: PCP Internal Medicine; Visit Provider Psychiatry & Neurology Neurology
DX: R41.89 Other symptoms and signs involving cognitive functions and awareness (principal); E51.9 Thiamine deficiency, unspecified
CPT/HCPCS: 99204; G2211

== ENCOUNTER → 2024-07-30 13:33 | Outpatient (BNVA) | payer MEDICARE, SELFPAY | PROVIDERS: PCP Internal Medicine; Visit Provider Psychiatry & Neurology Neurology | DX: R41.89 Other symptoms and signs involving cognitive functions and awareness (principal); E51.9 Thiamine deficiency, unspecified | CPT/HCPCS: 99202 ==

== ENCOUNTER 2024-09-05 10:01 | Outpatient (REF) | payer MEDICARE, SELFPAY ==
--- OUTSIDE RECORDS SUMMARY | 2024-09-05 10:50 | XMS_ITS | Clinical Summary ---
Author Organization [facility] Address [address] [place] [address] Phone Care Team Providers Care Cancer Center Director Name Role Phone Mallory Wagner MD Primary Care Provider [phone] Allergies No known active allergies Social History Tobacco Use Types Packs/Day Years [...] - 2023-2 5 season) 2023 01/02/2021, 05/19/2020 Depression Screening 02/08/2024 Colorectal Cancer Screening: Colonoscopy 05/16/2024 Falls Risk Assessment 05/16/2024 Hepatitis C Screening 05/16/2024 Medicare Annual Wellness Visit 05/16/2024 Osteoporosis Screening (Bone Density Screening) 05/16/2024 Social Influencers of Health Screening 05/16/2024 Influenza Vaccine (#1) 2024 9, 02/09/2018, 02/12/2017 RSV Immunization Adult Patients (1 [...] on patient's age to complete this topic Insurance [address] [place] [id number] [employer] MED[employer]ARE [employer]VANTAGE Care Teams Cancer Center Director Relationship Specialty Start Date End Date Mallory Wagner MD [address] [place] [address] PCP - General Internal Medicine 05/16/24
[2024-09-05 14:50] LABS: Folate 14.4 ng/mL (> or = 4.0); Vitamin B12 441 pg/mL (200-900)
[2024-09-09 16:49] LABS: Vitamin D 25-OH, D2 <4 ng/mL; Vitamin D 25-OH, D3 38 ng/mL; Vitamin D 25-OH, Total 38 ng/mL (30-100)
== END 2024-09-05 10:02 | disposition home or self-care (01) ==
LOC: HO.HMGCLDS 10:01
PROVIDERS: PCP Internal Medicine; Visit Provider Internal Medicine
DX: E51.9 Thiamine deficiency, unspecified (principal); E78.5 Hyperlipidemia, unspecified; E55.9 Vitamin D deficiency, unspecified; E53.8 Deficiency of other specified B group vitamins
CPT/HCPCS: 36415; 82306; 82607; 82746; 84425; 99212

== ENCOUNTER 2024-09-05 10:46 | Outpatient (AMB) | payer MEDICARE, SELFPAY ==
[2024-09-05 10:56] VITALS: BP 110/66; PULSE 64; O2SAT 99; BMI 24.5
--- NOTE | 2024-09-05 10:56 | MHC.PC.OV ---
Vital Signs 09/05/24 10:56 Height 5 ft 8 in Weight 161 lb BMI 24.5 BP 110/66 Blood Pressure Location Lt brachial Position Sitting Pulse 64 Pulse Source Pulse Oximeter Pulse Oximetry (%) 99 Oxygen Delivery Method Room Air Intake Visit Reasons: 3m follow up Intake Note: bp readings at home yesterday 126/78 HR 77 O2 100 Allergies codeine Allergy (Unknown, Verified 09/05/24 10:57) Headache donepezil Adverse Reaction (Intermediate, Verified 09/05/24 11:22) Dizziness Medication List - Last Reconciled 09/05/24 by Mallory Wagner MD coenzyme Q10 (H2Q CoQ10) PO donepezil 10 mg PO BEDTIME multivitamin 1 tab PO DAILY [pre probiotic PO] thiamine HCl (vitamin B1) 100 mg PO DAILY Tobacco use date assessed: 06/06/24 Fall risk assessment: No Falls in past year Last assessed Fall Risk: 09/05/24 Dental Screening Dental Screen Date: 03/08/24 HPI 3m follow up HPI Details Pt presents for a follow-up. She has been taking thiamine daily, eating well-balanced diet and not drinking alcohol since she moved in to assisted living. Patient is cutting down on smoking down to 5 cigarettes a day. She had evaluation by neurologist for dementia and brain MRI was ordered. patient does not want to take donepezil because of possibility of dizziness as a side effect. She has been followed low-cholesterol diet for hyperlipidemia and had a blood work this morning. [facility] Medical History (Updated 09/05/24 @ 11:41 by Mallory Wagner MD) Dementia Cognitive change Cognitive decline Nicotine dependence, cigarettes, uncomplicated Colonoscopy refused Hyperlipidemia Depression Surgical History No pertinent past surgical history Family History Father No problems noted. Mother No problems noted. Social History Housing: Condominium Patient Tobacco Use Status: Current everyday Tobacco user Cigarettes Per Day: 4 Years Smoked: (onset 16yo, 1/2ppd x 57yrs, now 1/4ppd, 25pyh) e-Cigarette/Vaping Use: Never Used service: No Current occupational status: retired Cognitive needs: No Hearing needs: No Vision needs: Yes Questionnaire BELEM-7 AMB Questionnaire BELEM-7 Date BELEM - 7 assessed: 03/08/24 Source: Developed by Drs. Mihir Yeung, Opal Dawn, Cesar Rebolledo and colleagues, with an educational jose armando from [email or web address]. Review of Systems Const All systems reviewed & are unremarkable except as noted in HPI and below Reports no additional complaints Eyes Reports no additional complaints ENT Reports no additional complaints Card Reports no additional complaints Resp Reports no additional complaints GI Reports no additional complaints Reports no additional complaints Musc Reports no additional complaints Physical exam (Primary Care) Vital Signs: Last Vital Signs Pulse 64 09/05/24 10:56 BP 110/66 09/05/24 10:56 Pulse Ox 99 09/05/24 10:56 Oxygen Delivery Method Room Air 09/05/24 10:56 BMI result Body Mass Index 24.5 Tobacco/Smoking Status: Tobacco use Status Tobacco use date assessed 06/06/24 09/05/24 10:56 Patient Tobacco Use Status Current everyday Tobacco 09/05/24 10:56 e-Cigarette/Vaping Use Never Used 09/05/24 10:56 Thrive Assessment: Date of Thrive Assessment Date Thrive assessed 09/05/24 09/05/24 11:02 Const General: no acute distress HENMT Head: Yes normal to inspection Face and sinus: Yes normal facial exam Eyes General: appearance normal, both eyes and all related structures Neck Neck: Yes no lymphadenopathy and Yes supple Resp Effort & Inspection: normal respiratory effort Auscultation: clear to auscultation bilaterally Cardio Rhythm: regular rhythm Heart sounds: S1 normal heart sound present and S2 normal heart sound present GI Inspection: Yes normal to inspection Palpation (GI): Soft to palpation Percussion: Yes normal to percussion Auscultation: normal bowel sounds Coding Level of Care Code Est Pt Level 3 (73013) Diagnoses Hyperlipidemia E78.5 Thiamine deficiency E51.9 Vitamin D deficiency E55.9 Assessment & Plan Assessment & Plan (1) Hyperlipidemia: Comment: Patient declined taking statins Code(s): E78.5 - Hyperlipidemia, unspecified Category: Medical Plan: Continue low-cholesterol diet regular exercise patient declined taking statin (2) Thiamine deficiency: Code(s): E51.9 - Thiamine deficiency, unspecified Category: Medical Plan: Continue thiamine (3) Vitamin D deficiency: Code(s): E55.9 - Vitamin D deficiency, unspecified Category: Medical Plan: Continue vitamin-D supplement follow-up in 6 months Medications: Refilled thiamine HCl (vitamin B1) 100 mg PO DAILY 90 tabs 3RF
== END 2024-09-05 11:36 | disposition home or self-care (01) ==
LOC: HO.HMCC 10:47
PROVIDERS: PCP Internal Medicine; Visit Provider Internal Medicine
DX: E78.5 Hyperlipidemia, unspecified (principal); E51.9 Thiamine deficiency, unspecified; E55.9 Vitamin D deficiency, unspecified

== ENCOUNTER 2024-12-18 13:17 | Outpatient (AMB) | payer MEDICARE, SELFPAY ==
--- NOTE | 2024-12-18 13:31 | A.OFFVIS_ITS ---
Vital Signs 12/18/24 13:32 Height 5 ft 8 in Weight 156 lb 8 oz BMI 23.8 BP 120/68 Blood Pressure Location Rt brachial Position Sitting Pulse 79 Pulse Source Pulse Oximeter Pulse Oximetry (%) 97 Oxygen Delivery Method Room Air Intake Visit Reasons: Follow up-LVM Intake Note: Patient presents follow up Dementia medication. No MRI, Speech seen 11/28. Never took Donepezil Allergies codeine Allergy (Unknown, Verified 12/18/24 13:36) Headache donepezil Adverse Reaction (Intermediate, Verified 12/18/24 13:36) Dizziness HPI Comments Details: 74y/o Right handed female comes for evaluation of moderate cognitive decline. She is here with her POA and friend Patt Harris who helps with history. 11/2024 Speech and hearing evaluation, reviewed with pt, she has moderate cognitive decline. MMSE is 27 today. She is seeing a speech therapist weekly for moderate cognitive decline and working towards functional memory goals. She has trouble falling asleep and staying asleep, doesn't know if she snores, chokes, coughs, has morning headaches and wakes herself up multiple times a night.She had 3 falls since moving into [facility] since April 2024. She had dizziness, loc, while going out to smoke from her 3rd dc room. She was dehydrated, she took the elevator, felt light headed and fainted in between the passageway. She can remember details, stm/ltm both are poor. She forgets dates, appts, medications, puts articles away and forgets where she put them, will wr ite her tasks on sticky note or carries her calendar around to remember things she is supposed to do. She has home cooked meals at the [facility] and diet has improved. Mood is depressed. She was rx Donepezil, never took it due to s/e of dizziness.She continues to stay active with bowling and bingo weekly. She continues to smoke 1pk every 3 days. She denies grinding her teeth GERD, headaches, n/v, RLS symptoms of paresthesias, parasomnias, a/v hallucinations. 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 Since then she has been having short term memory issues and some intermediate issues. she has trouble remembering her bank accounts and [employer] account. Recently they realized she had withdrawn money from her [employer] and does not remember where the money is. she had to move out of [place] 3 mths ago- by court order . she stopped paying her house mortgage and the condo was foreclosed. Tom had not been cleaned in past 15 years with lots of hoarding, had a cat that did not use litter box. [facility] stepped in to move her out . Her significant other passed in 2013 and all his things were still there. She did not remember that the cat passed 2 years a go. The house still had cat feces. 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 She was drinking vodka, 2 drinks a day and stopped 4 mths ago. Smoking -1/2 ppd [facility] Medical History Dementia Cognitive change Cognitive decline Nicotine dependence, cigarettes, uncomplicated Colonoscopy refused Hyperlipidemia Depression Surgical History No pertinent past surgical history Family History Father No problems noted. Mother No problems noted. Social History (Updated 12/19/24 @ 20:30 by Mohinder Julien PA-C) Household Members: None Housing: Assisted Living Facility Housing Other:: [facility] Are you a primary plant health care technician to a significant other at home: No Do you presently have visiting nurse or other home services: Yes (speech and hearing) Patient Tobacco Use Status: Current everyday Tobacco user Cigarettes Per Day: 4 Years Smoked: (onset 16yo, 1/2ppd x 57yrs, now 1/4ppd, 25pyh) e-Cigarette/Vaping Use: Never Used service: No Current occupational status: retired Cognitive needs: No Hearing needs: No Vision needs: Yes Physical Exam Vital Signs: Last Vital Signs Pulse 79 12/18/24 13:32 BP 120/68 12/18/24 13:32 Pulse Ox 97 12/18/24 13:32 Oxygen Delivery Method Room Air 12/18/24 13:32 BMI result Body Mass Index 23.8 Const General: cooperative, comfortable and no acute distress Nutritional Appearance: average body habitus Orientation/consciousness: patient oriented x3 HEENT Face and sinus: Yes face symmetric Teeth and gingiva: other (mallampti score is 3) Eyes Pupils: Equal, round and reactive pupils present Neck Other: vertigo with extension Resp Effort & Inspection: normal respiratory effort and able to speak in complete sentences Neuro General: patient oriented x3 and moves all extremities Cranial nerves: Yes Equal, round and reactive pupils present, Yes Normal accommodation reflex present, Yes Normal facial strength present, Yes Midline tongue present, Yes Ability to bilaterally rotate head present and Yes Ability to bilaterally elevate shoulders present Gait exam (Neuro): Antalgic gait present Motor exam (neuro): Pronator motor function not present, Abnormal motor strength present and Abnormal muscle tone present Psych Appearance: grossly normal and well kempt Attitude: cooperative Orientation What is the (year) (season) (date) (day) (month)?: year, season, date, day and month Where are we (state) (county) (town or city) (hospital) (floor)?: state, county, town or city and hospital/clinic Registration Name of 3 unrelated objects clearly and slowly, then ask patient to repeat all 3 of them. (1st repeat determines score. Make sure they can repeat all three): object 1, object 2 and object 3 Attention & Calculation (CHOOSE ONE) Spell WORLD backwards (DLROW): 5 letters Recall Ask patient to repeat the 3 items from question #3.: object 1 and object 2 Language Show patient a wristwatch & ask what it is. Repeat for pencil.: watch and pencil Ask the patient to repeat the phrase 'No ifs, ands, or buts' after you.: correct Ask the patient to 'take a piece of paper with their right hand' 'fold paper in half' 'place paper on floor': take paper in right hand, fold paper in half and place paper on floor Print the sentence 'CLOSE YOUR EYES' on a piece. If patient actually closes eyes then score.: followed written direction Give patient a blank piece of paper & ask to write a sentence. Score if it contains a noun & verb.: sentence contains subject and verb Score Score: 27 Results Reviewed Results Reviewed: Impression: Centrilobular emphysema with subcentimeter benign-appearing pulmonary nodules. Lung rads category 2 Speech Language Note Moderate cognitive decline Assessment & Plan Assessment & Plan (1) Cognitive decline: Comment: related to vascular risk factors , mood, alcohol etc Code(s): R41.89 - Other symptoms and signs involving cognitive functions and awareness Category: Medical (2) Thiamine deficiency: Code(s): E51.9 - Thiamine deficiency, unspecified Category: Medical (3) Dementia: Comment: Referred to neurology Code(s): F03.90 - Unspecified dementia, unspecified severity, without behavioral disturbance, psychotic disturbance, mood disturbance, and anxiety Category: Medical Qualifiers: Dementia type: Alzheimer's Alzheimer's disease onset: unspecified onset Dementia severity: moderate Dementia behavioral or psychological symptom: with agitation Qualified Code(s): G30.9 - Alzheimer's disease, unspecified; F02.B11 - Dementia in other diseases classified elsewhere, moderate, with agitation (4) Sleep difficulties: Code(s): G47.9 - Sleep disorder, unspecified Category: Medical (5) Vitamin D deficiency: Code(s): E55.9 - Vitamin D deficiency, unspecified Category: Medical (6) Vitamin B12 deficiency: Code(s): E53.8 - Deficiency of other specified B group vitamins Category: Medical Plan HST to r/o jana Cognitive Decline start Memantine 7mg po daily. She is doing better at independent living [facility]. MMSE is 27 today. Requst MRI [facility]- July 2023 [facility] -MRI (2x studies) MRI - [facility] 2024, 2x. requested MRI. Cognitive evaluation and Speech and hearing note reviwed with pt. She declines on going therapy due to transportation concerns, and insurance concerns. Donepezil 5mg qd for 4 weeks then 10mg qd- discontinued due to se n/v FH+ of dementia? Sister is 88. Life in [facility] . Orders: Orders RT home sleep study 12/18/24 G47.19 - Other hypersomnia Medications: New magnesium oxide 500 mg PO DAILY 180 tabs 3RF sleep difficulties 6 months MDD 50 0mg F02.B11 - Dementia in other diseases classified elsewhere, moderate, with agitation, G30.9 - Alzheimer's disease, unspecified, G47.9 - Sleep disorder, unspecified memantine 7 mg PO DAILY 30 ea 0RF alzheimers 1 month MDD 7mg F03.90 - Unspecified dementia, unspecified severity, without behavioral disturbance, psychotic disturbance, mood disturbance, and anxiety, R41.89 - Other symptoms and signs involving cognitive functions and awareness Changed From multivitamin 1 tab PO DAILY E53.8 - Deficiency of other specified B group vitamins, E55.9 - Vitamin D deficiency, unspecified, R41.89 - Other symptoms and signs involving cognitive functions and awareness To multivitamin 1 tab PO DAILY 90 tabs 3RF 3 months MDD 1 tab E53.8 - Deficiency of other specified B group vitamins, E55.9 - Vitamin D deficiency, unspecified, R41.89 - Other symptoms and signs involving cognitive functions and awareness Refilled thiamine HCl (vitamin B1) 100 mg PO DAILY 90 tabs 3RF Patient Instructions: Sleep Hygiene provided: set a scheduled bedtime and wake time to help regulate the circadian rhythm and balance the release of pituitary hormones. Sleep in a dark room, temperatures below 68 degrees, and no devices n bed. Limit caffeinated products 6 hours prior to bed, and limit fluids 2-4 hours prior to bed. Gentle night yoga, diffusing essential oils, and playing soft music can be relaxing. Coding Level of Care Code New Pt Level 4 (84812) Diagnoses Cognitive decline R41.89 Thiamine deficiency E51.9 Moderate Alzheimer's dementia with agitation, unspecified timing of dementia onset G30.9; F02.B11 Dementia type: Alzheimer's Alzheimer's disease onset: unspecified onset Dementia severity: moderate Dementia behavioral or psychological symptom: with agitation Sleep difficulties G47.9 Vitamin D deficiency E55.9 Vitamin B12 deficiency E53.8
[2024-12-18 13:32] VITALS: BP 120/68; PULSE 79; O2SAT 97; BMI 23.8
--- OUTSIDE RECORDS SUMMARY | 2024-12-18 14:58 | XMS_ITS | Clinical Summary ---
Author Organization [facility] Address [address] [place] [address] Phone Care Team Providers Care Manager Furniture Name Role Phone Mallory Wagner MD Primary Care Provider [phone] Allergies No known active allergies Social History [...] Last Done Comments Breast Cancer Screening 1950 Colorectal Cancer Screening: Colonoscopy 1950 DTaP,Tdap,and Td Vaccines (1 - Tdap) 1969 Zoster Vaccines (1 of 2) 2000 Pneumococcal Vaccine: 50+ Years (2 of 2 - PCV20 or PCV21) 02/09/2019 02/09/2018 Depression Screening 02/08/2024 Falls Risk Assessment 05/16/2024 Hepatitis C Screening 05/16/2024 Medicare Annual Wellness Visit 05/16/2024 Osteoporosis Screening (Bone Density Screening) 05/16/2024 Social Influencers of Health Screening 05/16/2024 COVID-19 Vaccine (3 - 2024-2 6 season) 2024 01/02/2021, 05/19/2020 Influenza Vaccine (#1) 2024 9, 02/09/2018, 02/12/2017 [...] age to complete this topic Insurance [address] [place] [id number] [employer] MED[employer]ARE [employer]VANTAGE Care Teams Manager Furniture Relationship Specialty Start Date End Date Mallory Wagner MD [address] [place] [id number] PCP - General Internal Medicine 05/16/24
== END 2024-12-18 14:41 | disposition home or self-care (01) ==
LOC: HO.HSMS 13:18
PROVIDERS: PCP Internal Medicine; Visit Provider Physician Assistant Medical
DX: R41.89 Other symptoms and signs involving cognitive functions and awareness (principal); E51.9 Thiamine deficiency, unspecified; G30.9 Alzheimer's disease, unspecified; F02.B11 Dementia in other diseases classified elsewhere, moderate, with agitation; G47.9 Sleep disorder, unspecified; E55.9 Vitamin D deficiency, unspecified; E53.8 Deficiency of other specified B group vitamins
CPT/HCPCS: 99204

== ENCOUNTER → 2024-12-18 13:17 | Outpatient (BNVA) | payer MEDICARE, SELFPAY | PROVIDERS: PCP Internal Medicine; Visit Provider Physician Assistant Medical | DX: G30.9 Alzheimer's disease, unspecified (principal); F02.B11 Dementia in other diseases classified elsewhere, moderate, with agitation; G47.9 Sleep disorder, unspecified; E55.9 Vitamin D deficiency, unspecified; E53.8 Deficiency of other specified B group vitamins | CPT/HCPCS: 99202 ==